=== PATIENT | female | born 1980 | race Caucasian/White ===

== ENCOUNTER 2019-08-30 13:45 | Outpatient (CLI) | payer MEDICARE, MEDICAID, SELFPAY ==
[2019-08-30 14:41] LABS: Basophils % 0.6 %; Eosinophils # 0.2 10^3/uL (0.0-0.8); Eosinophils % 2.2 %; Hemoglobin 14.8 g/dL (11.5-15.3); Lymphocytes # 2.1 10^3/uL (0.8-4.8); Lymphocytes % 30.1 %; Mean Corpuscular HGB Conc 32.2 g/dL (30.0-36.0); Mean Corpuscular Hemoglobin 30.3 pg (28.0-34.0); Mean Corpuscular Volume 94.3 fL (81-99); Mean Platelet Volume 9.3 fL (7.4-10.4); Monocytes # 0.8 10^3/uL (0.2-0.9); Monocytes % 11.3 %; Neutrophils # 3.8 10^3/uL (1.8-7.7); Neutrophils % 55.5 %; Nucleated Red Blood Cells % 0 %; Platelet Count 423 10^3/cmm (130-400); Red Blood Count 4.88 10^6/uL (4.1-5.3); Red Cell Distribution Width 12.9 % (12.1-15.1); White Blood Count 6.8 10^3/uL (4.0-10.0)
== END 2019-08-30 13:46 | disposition home or self-care (01) ==
LOC: ONCMED 13:47
PROVIDERS: Family Provider Nurse Practitioner Family; PCP Family Medicine; Visit Provider Internal Medicine Hematology & Oncology
DX: D75.1 Secondary polycythemia (principal)
CPT/HCPCS: 36415; 85025

== ENCOUNTER 2019-09-13 14:06 | Outpatient (CLI) | payer MEDICARE, MEDICAID, SELFPAY ==
--- NOTE | 2019-09-13 14:09 | MM_ITS ---
WS: [id number] BILATERAL DIGITAL SCREENING MAMMOGRAPHY WITH CAD CLINICAL INFORMATION: SCREENING HISTORY: Screening mammogram. No current complaints. COMPARISON: June 01, 2016 TECHNIQUE: Bilateral CC and MLO views. FINDINGS: Scattered fibroglandular densities bilaterally. Intramammary lymph nodes right breast. Asymmetric hardik ast tissue upper right breast with small nodule measuring 9 mm is new from 2016. Recommend spot compr ession views and ultrasound in further evaluation. Left breast is unchanged. MM/[id number] IMPRESSION: BI-RADS: 0-Incomplete: Need additional imaging evaluation FOLLOW UP: Need Additional Imaging
== END 2019-09-13 14:07 | disposition home or self-care (01) ==
LOC: RADSHAW 14:06
PROVIDERS: Family Provider Nurse Practitioner Family; PCP Family Medicine; Visit Provider Family Medicine
DX: Z12.31 Encounter for screening mammogram for malignant neoplasm of breast (principal)
CPT/HCPCS: 77067

== ENCOUNTER 2019-10-09 12:05 | Outpatient (CLI) | payer MEDICARE, MEDICAID, SELFPAY ==
--- NOTE | 2019-10-09 12:14 | US_ITS ---
WS: [id number] RIGHT DIGITAL MAMMOGRAPHY WITH CAD CLINICAL INFORMATION: RT BREAST LUM TECHNIQUE: 4 views of the right breast were obtained. FINDINGS: Scattered fibroglandular densities of the right breast. Again seen is asymmetric breast tissue upper outer right breast with a small 9 mm nodule. Dense breast tissue partially compresses out on the spot compression views. Ultrasound is pending. ULTRASOUND BREAST RIGHT TECHNIQUE: Ultrasound right breast focused area of concern. CLINICAL INFORMATION: RT BREAST LUMP COMPARISON: None. FINDINGS: Ultrasound right breast 11:00, 5 cm from the nipple. Well-circumscribed ovoid lesion representing a l ymph node with central fatty hilum. Lymph node node measures 1.1 x 1.1 x 0.6 cm. Underlying breast pa renchyma appears somewhat heterogeneous and dense. Mammographic findings may be due to resolving maeve ifrah or inflammation. This is probably benign. Recommend 3 month follow-up right diagnostic mammogram and ultrasound. No other suspicious abnormalities. No focal lesions to target for biopsy. US/US breast RT limited* [id number] IMPRESSION: BI-RADS: 3-Probably Benign FOLLOW UP: 3 Month Follow-up
== END 2019-10-09 12:06 | disposition home or self-care (01) ==
LOC: RADSHAW 12:11
PROVIDERS: Family Provider Nurse Practitioner Family; PCP Family Medicine; Visit Provider Family Medicine
DX: N63.11 Unspecified lump in the right breast, upper outer quadrant (principal)
CPT/HCPCS: 76642; 77065

== ENCOUNTER → 2019-12-07 08:08 | Outpatient (BNVA) | payer MEDICARE, MEDICAID, SELFPAY | PROVIDERS: Family Provider Nurse Practitioner Family; PCP Family Medicine; Visit Provider Nurse Practitioner Psychiatric/Mental Health | DX: F33.42 Major depressive disorder, recurrent, in full remission (principal); F70 Mild intellectual disabilities; F17.210 Nicotine dependence, cigarettes, uncomplicated | CPT/HCPCS: 99213 ==

== ENCOUNTER 2020-03-07 08:00 | Outpatient (CLI) | payer MEDICARE, MEDICAID, SELFPAY | END 2020-03-07 09:00 | disposition home or self-care (01) | LOC: RADSHAW 04-01 15:18 | PROVIDERS: PCP Family Medicine; Visit Provider Surgery | DX: F33.42 Major depressive disorder, recurrent, in full remission (principal); F70 Mild intellectual disabilities; F17.210 Nicotine dependence, cigarettes, uncomplicated | CPT/HCPCS: 99213 ==

== ENCOUNTER → 2020-06-06 07:37 | Outpatient (BNVA) | payer MEDICARE, MEDICAID, SELFPAY | PROVIDERS: PCP Family Medicine; Visit Provider Nurse Practitioner Psychiatric/Mental Health | DX: F33.42 Major depressive disorder, recurrent, in full remission (principal); F70 Mild intellectual disabilities; F17.210 Nicotine dependence, cigarettes, uncomplicated; F43.12 Post-traumatic stress disorder, chronic | CPT/HCPCS: 99213 ==

== ENCOUNTER → 2020-08-22 10:27 | Outpatient (BNVA) | payer MEDICARE, MEDICAID, SELFPAY | PROVIDERS: PCP Family Medicine; Visit Provider Nurse Practitioner Family | DX: E55.9 Vitamin D deficiency, unspecified (principal); E03.9 Hypothyroidism, unspecified; E78.2 Mixed hyperlipidemia; Z79.899 Other long term (current) drug therapy | CPT/HCPCS: 80053; 80061; 81003; 82306; 83036; 84439; 84443; 84481; 85025 ==

== ENCOUNTER → 2020-09-05 07:45 | Outpatient (BNVA) | payer MEDICARE, MEDICAID, SELFPAY | PROVIDERS: PCP Family Medicine; Visit Provider Nurse Practitioner Psychiatric/Mental Health | DX: F33.42 Major depressive disorder, recurrent, in full remission (principal); F70 Mild intellectual disabilities; F17.210 Nicotine dependence, cigarettes, uncomplicated | CPT/HCPCS: 99214 ==

== ENCOUNTER 2020-10-10 10:56 | Outpatient (CLI) | payer MEDICARE, MEDICAID, SELFPAY ==
--- NOTE | 2020-10-10 11:01 | MM_ITS ---
WS: [id number] BILATERAL DIGITAL SCREENING MAMMOGRAPHY WITH CAD CLINICAL INFORMATION: SCREENING HISTORY: Screening mammogram. No current complaints. COMPARISON: None. TECHNIQUE: Bilateral CC and MLO views. FINDINGS: Scattered fibroglandular densities bilaterally. Stable asymmetric breast tissue upper outer right hardik ast. A few intramammary lymph nodes. Stable fatty lymph nodes right axilla. No suspicious focal mass, asymmetry, calcifications, or architectural distortion. No evidence of malignancy. MM/[id number] IMPRESSION: BI-RADS: 2-Benign FOLLOW UP: 1 Year Follow-up Recommend return to annual screening mammography.
== END 2020-10-10 10:57 | disposition home or self-care (01) ==
LOC: RADSHAW 10:58
PROVIDERS: PCP Nurse Practitioner Family; Visit Provider Nurse Practitioner Family
DX: Z12.31 Encounter for screening mammogram for malignant neoplasm of breast (principal)
CPT/HCPCS: 77067

== ENCOUNTER → 2020-10-24 12:17 | Outpatient (BNVA) | payer MEDICARE, MEDICAID, SELFPAY | PROVIDERS: PCP Nurse Practitioner Family; Visit Provider Nurse Practitioner Family | DX: E55.9 Vitamin D deficiency, unspecified (principal); E78.2 Mixed hyperlipidemia; E03.9 Hypothyroidism, unspecified; Z79.899 Other long term (current) drug therapy | CPT/HCPCS: 80053; 80061; 81003; 82306; 83036; 84439; 84443; 84481; 85025 ==

== ENCOUNTER → 2020-11-04 11:49 | Outpatient (BNVA) | payer MEDICARE, MEDICAID, SELFPAY | PROVIDERS: PCP Nurse Practitioner Family; Visit Provider Nurse Practitioner Family | DX: N39.0 Urinary tract infection, site not specified (principal) | CPT/HCPCS: 81003 ==

== ENCOUNTER → 2020-12-12 08:07 | Outpatient (BNVA) | payer MEDICARE, MEDICAID, SELFPAY | PROVIDERS: PCP Nurse Practitioner Family; Visit Provider Nurse Practitioner Psychiatric/Mental Health | DX: F33.42 Major depressive disorder, recurrent, in full remission (principal); F70 Mild intellectual disabilities; F17.210 Nicotine dependence, cigarettes, uncomplicated | CPT/HCPCS: 99214 ==

== ENCOUNTER 2020-12-24 13:29 | Emergency (ER) | payer MEDICARE, MEDICAID, SELFPAY ==
[2020-12-24 13:45] VITALS: BP 107/83; PULSE 95; RESP 16; TEMP 37.3; O2SAT 95; BMI 39.8
--- NOTE | 2020-12-24 14:05 | USCV_ITS ---
FlashBrenda barnard Age: 40 Gender: F : 1980 Exam Date: 12/24/2020 14:25 Ordering Phys: Breanna Mercado Technologist: MARY [place] [facility] [place]: Swelling, pain HISTORY: Left lower extremity pain and swelling. PROCEDURES: Comparison: none available. Venous duplex imaging was performed in only the left lower extremity. The following venous structures were evaluated: common femoral vein, profunda vein, proximal portion of the greater saphenous vein, superficial femoral vein, and the popliteal vein. In addition, the posterior tibial and peroneal trunk were evaluated. Serial compression, augmentation maneuvers, and spectral Doppler flow evaluation were performed. FINDINGS: Normal 2-D Doppler and augmentation and compressibility throughout the lower extremity venous structures. Additional imaging through the proximal calf veins also reveals no thrombus. Limited evaluation of the greater saphenous vein is patent with no thrombus.. There is subcutaneous left lower extremity edema noted. CONCLUSIONS No DVT left lower extremity. Dr. Sara Vasquez DO (Electronically Signed) Final Date: 24 Dec 2020 14:41 S
--- NOTE | 2020-12-24 14:07 | W.ED.EXTPRO ---
HPI - Extremity Problem General: Chief complaint: Extremity Problem,Nontraumatic Stated complaint: L LEG PAIN, RED, SWOLLEN Time Seen by Provider: 12/24/20 13:35 Source: patient Mode of arrival: ambulatory History of Present Illness: HPI Narrative: left leg pain and swelling, redness Complaint: extremity pain and extremity swelling Location: left and lower extremity Severity scale (1-10): 6 Quality: burning and aching Radiation: none Exacerbating factors: weight bearing and walking Associated symptoms: Reports fever(s) Review of Systems General: Reports: 10 or more systems reviewed and unremarkable except in HPI and below Const: Reports: fever(s); Denies: chills Musc: Reports: extremity pain (left leg) and extremity swelling (left leg) PFSH ED PFSH: Medical History Asthma Encounter for medication management H/O methicillin resistant Staphylococcus aureus Hypothyroid Idiopathic mild intellectual disability Insomnia Major depressive disorder, recurrent, in full remission with anxious distress Mixed hyperlipidemia Nicotine dependence, cigarettes, uncomplicated Osteoarthritis of right knee Pain and swelling of left lower leg Vitamin D deficiency Physical Exam Const: COMMON NORMALS: no acute distress, patient oriented x3, no limitations and alert GENERAL APPEARANCE: cooperative and comfortable ORIENTATION/CONSCIOUSNESS: Yes awake, Yes oriented to person, Yes oriented to place and Yes oriented to time HENMT: COMMON NORMALS: normocephalic, atraumatic, external ears normal, EAC's normal, TM's normal bilaterally and Normal external nose present HEAD & SCALP: normal to inspection, normocephalic and atraumatic FACE & SINUS: normal facial exam, sinuses nontender and face symmetric NOSE: Normal external nose present, Normal nares present and No nasal discharge present EXTERNAL EAR: Yes external ears normal EXTERNAL AUDITORY CANAL: EAC's normal TYMPANIC MEMBRANE: TM's normal bilaterally MOUTH: Normal oral and palatal mucosa present, lip normal and tongue normal THROAT: posterior oropharynx normal, tonsils normal and uvula midline Eye: COMMON NORMALS: Equal, round and reactive pupils present, EOMs intact bilaterally and conjunctivae normal GENERAL EYE: appearance normal, both eyes and all related structures and normal light reflex EYELID: eyelids normal CONJUNCTIVA: Yes conjunctivae normal PUPIL: Yes Equal, round and reactive pupils present EOM: Yes EOM abnormal DIRECT OPHTHALMOSCOPY: Yes normal light reflex Neck/C-Spine: COMMON NORMALS: full ROM, no lymphadenopathy, supple, no meningeal signs, no JVD and Thyroid normal GENERAL: Yes normal visual inspection THYROID: Thyroid normal CERVICAL SPINE: Yes cervical ROM normal and Yes normal cervical lordosis Lymph: LYMPHATIC: no lymphadenopathy noted Chest: COMMONS NORMALS: normal inspection of the chest and normal palpation of entire chest wall Resp: COMMON NORMALS: normal respiratory effort, No retractions and clear to auscultation bilaterally AUSCULTATION: clear to auscultation bilaterally Cardio: COMMON NORMALS: no JVD, regular rate, regular rhythm, S1 normal heart sound present, S2 normal heart sound present, No gallops present (Cardio), No clicks present (Cardio), No murmurs present (Cardio), No rub (Cardio) and Peripheral pulses 2+ throughout RATE: regular rate RHYTHM: regular rhythm HEART SOUNDS: S1 normal heart sound present and S2 normal heart sound present PERIPHERAL PULSES: Peripheral pulses 2+ throughout GI: COMMON NORMALS: Normal to inspection, nondistended, normoactive bowel sounds present, Soft to palpation, non-tender and no masses PALPATION: Yes Soft to palpation : COMMON NORMALS: Yes no CVA tenderness and Yes normal external appearance BLADDER/KIDNEY EXAM: Yes no CVA tenderness Back/Pelvis: COMMON NORMALS: no CVA tenderness, thoracic and lumbar spine normal to inspection, no thoracic nor lumbar tenderness and thoraco-lumbar ROM normal Extremity: COMMON NORMALS: normal to inspection, full ROM, capillary refill normal, no joint enlargement, no clubbing, cyanosis or edema, no calf tenderness and no pedal edema GENERAL: Yes normal exam except as noted LEFT LOWER EXTREMITY: Yes lower leg (redness, swelling, positive Turpin's sign) Left lower leg: Yes palpation (warm to touch) and Yes neurovascular exam (intact ) Neuro: COMMON NORMALS: patient oriented x3, moves all extremities, no focal motor deficits, no sensory deficits noted and gait normal SENSORIUM/ORIENTATION: Yes alert, Yes oriented to person, Yes oriented to place and Yes oriented to time MENINGEAL SIGNS: Yes no meningeal signs Psych: COMMON NORMALS: mental status grossly normal, Normal thought process present, cooperative, normal affect, speech normal and activity/motor behavior normal SPEECH: Yes normal speech THOUGHT PROCESS: Normal thought process present Skin: COMMON NORMALS: no rashes or lesions noted, no wounds and turgor normal GENERAL SKIN EXAM: no rashes or lesions noted and turgor normal Course ED course: Pt presents to ER with complaints of left leg pain, swelling, redness for a few days. The leg is visibly red, swollen, tender, and warm to touch. Labs and US pending. Pt has low grade fever of 99.1. Toradol ordered. Reevaluation(s): Reevaluation #1: US negative for DVT. WBC slightly elevated. Will give initial IV clinda and outpt oral antibx with close follow up with PCP tomorrow to ensure improving. Return for any worsening in symptoms or if not better in 24 to 48 hours. Time: 15:14 Vital Signs: Vital signs: Vital Signs Temperature 99.1 F 12/24/20 13:45 Pulse Rate 93 12/24/20 14:28 Respiratory Rate 16 12/24/20 14:28 Blood Pressure 107/83 12/24/20 14:28 Pulse Oximetry 94 12/24/20 14:28 MDM - Extremity (Nontraumatic) Lab Data: Labs: Lab Results 12/24/20 12/24/20 12/24/20 Range/Units 13:50 13:50 13:50 WBC 13.3 H (4.0-10.0) 10^3/ uL RBC 5.18 (4.1-5.3) 10^6/u L Hgb 15.5 H (11.5-15.3) g/dL Hct 47.8 H (37.0-47.0) % MCV 92.3 (81-99) fL MCH 29.9 (28.0-34.0) pg MCHC 32.4 (30.0-36.0) g/dL RDW 14.0 (12.1-15.1) % Plt Count 281 (130-400) 10^3/c mm MPV 10.2 (7.4-10.4) fL Neut % (Auto) 88.3 % Lymph % (Auto) 6.9 % [place] % (Auto) 4.0 % Eos % (Auto) 0.1 % Baso % (Auto) 0.2 % Neut # (Auto) 11.74 H (1.8-7.7) 10^3/u L Lymph # (Auto) 0.9 (0.8-4.8) 10^3/u L [place] # (Auto) 0.5 (0.2-0.9) 10^3/u L Eos # (Auto) 0.0 (0.0-0.8) 10^3/u L Baso # (Auto) 0.0 (0.0-0.1) 10^3/u L Nucleated RBC % (a uto) 0 % Nucleated RBCs # 0.0 /100WBC PT 15.10 H (12.1-14.9) SECO NDS INR 1.16 (0.8-1.2) APTT 32.4 (23.9-36.7) SECO NDS Sodium 134 L (136-145) mmol/L Potassium 4.4 (3.5-5.1) mmol/L Chloride 98 (98-107) mmol/L Carbon Dioxide 25 (22-29) mmol/L Anion Gap 15.4 (5-19) BUN 8 (6-20) mg/dL Creatinine 0.9 (0.5-0.9) mg/dL GFR Calculation 68.7 L (90-130) mL/min Glucose 82 (65-115) mg/dL Calculated Osmolal ity 275 L (285-295) mOsm/k g Calcium 8.8 (8.5-10.5) mg/dL Total Bilirubin 0.3 (0.15-1.2) mg/dL AST 29 (0-32) U/L ALT 29 (0-33) U/L Alkaline Phosphata se 72 (35-105) IU/L Total Protein 7.0 (6.6-8.7) g/dL Albumin 4.1 (3.5-5.2) g/dL Globulin 2.9 (1.3-4.6) g/dL Imaging Data^: US: Radiologist's impression: [address] [id number] ReportSigned Patient: Brenda Correia #: [id number]: 1980Acct#:[id number]/Sex: 40 / FADM Date: 12/24/20Loc: ERRoom/Bed:Attending Dr: Ordering Provider/Ordering MD: Breanna Mercado NP Date of Service: 12/24/20 Procedure(s): [id number] Accession Number(s): [id number] Report Number: [id number] Brenda Correia Age: 40 Gender: F : 1980 Exam Date: 12/24/2020 14:25 Ordering Phys: Breanna Mercado Technologist: MARY [place]am Location[place] [facility] [place] Indication: Swelling, pain HISTORY: Left lower extremity pain and swelling. PROCEDURES: Comparison: none available. Venous duplex imaging was performed in only the left lower extremity. The following venous structures were evaluated: common femoral vein, profunda vein, proximal portion of the greater saphenous vein, superficial femoral vein, and the popliteal vein. In addition, the posterior tibial and peroneal trunk were evaluated. Serial compression, augmentation maneuvers, and spectral Doppler flow evaluation were performed. FINDINGS: Normal 2-D Doppler and augmentation and compressibility throughout the lower extremity venous structures. Additional imaging through the proximal calf veins also reveals no thrombus. Limited evaluation of the greater saphenous vein is patent with no thrombus.. There is subcutaneous left lower extremity edema noted. CONCLUSIONS No DVT left lower extremity. Dr. Sara Vasquez DO (Electronically Signed) Final Date: 24 Dec 2020 14:41 S Discharge Plan Discharge Prescriptions: No Action levothyroxine 50 mcg tablet PO RF: 0 albuterol sulfate 90 mcg/actuation HFA aerosol inhaler 2 puff inhalation Q6H PRN (Reason: shortness of breath or wheezing) RF: 0 bupropion HCl [Wellbutrin SR] 150 mg tablet sustained-release 12 hr 150 mg PO BID Qty: 60 RF: 6 lorazepam 0.5 mg tablet 0.5 mg PO TID Qty: 75 RF: 3 trazodone 50 mg tablet 50 mg PO .QHS PRN (Reason: sleep) Qty: 30 RF: 6 albuterol sulfate 2.5 mg /3 mL (0.083 %) solution for nebulization 2.5 mg INHALATION TID RF: 0 atorvastatin 20 mg tablet 20 mg PO QDAY RF: 0 cetirizine [Zyrtec] 10 mg tablet 10 mg PO QDAY RF: 0 melatonin 5 mg capsule 5 mg PO .QHS Qty: 30 RF: 6 ergocalciferol (vitamin D2) 1,250 mcg (50,000 unit) capsule 1,250 mcg PO .weekly Qty: 4 RF: 5 omega-3 acid ethyl esters 1 gram capsule See Rx Instructions .ROUTE .COMPLEX Qty: 120 RF: 5 docusate sodium [Colace] 100 mg capsule 100 mg PO BID Qty: 60 RF: 5 meloxicam 15 mg tablet 15 mg PO QDAY Qty: 90 RF: 1 fluticasone propionate 50 mcg/actuation spray,suspension See Rx Instructions .ROUTE .COMPLEX Qty: 16 RF: 2 Coding Level of Care Code ED [employer] Fwd Exam Comprehensive
[2020-12-24 14:23] LABS: Basophils % 0.2 %; Eosinophils % 0.1 %; Hematocrit 47.8 % (37.0-47.0); Hemoglobin 15.5 g/dL (11.5-15.3); Lymphocytes # 0.9 10^3/uL (0.8-4.8); Lymphocytes % 6.9 %; Mean Corpuscular HGB Conc 32.4 g/dL (30.0-36.0); Mean Corpuscular Hemoglobin 29.9 pg (28.0-34.0); Mean Corpuscular Volume 92.3 fL (81-99); Mean Platelet Volume 10.2 fL (7.4-10.4); Monocytes # 0.5 10^3/uL (0.2-0.9); Neutrophils # 11.74 10^3/uL (1.8-7.7); Neutrophils % 88.3 %; Nucleated Red Blood Cells % 0 %; Platelet Count 281 10^3/cmm (130-400); Red Blood Count 5.18 10^6/uL (4.1-5.3); White Blood Count 13.3 10^3/uL (4.0-10.0)
[2020-12-24 14:27] LABS: INR 1.16 (0.8-1.2)
[2020-12-24] MEDS: ketorolac 30 mg/mL INJ IVP (14:27)
[2020-12-24 14:28] VITALS: BP 107/83; PULSE 93; RESP 16; O2SAT 94
[2020-12-24 14:28] LABS: Partial Thromboplastin Time 32.4 SECONDS (23.9-36.7)
--- NOTE | 2020-12-24 14:31 | PC.NURSE ---
US done at bedside
[2020-12-24 14:34] LABS: Alanine Aminotransferase 29 U/L (0-33); Albumin Level 4.1 g/dL (3.5-5.2); Alkaline Phosphatase 72 IU/L (35-105); Anion Gap 15.4 (5-19); Aspartate Amino Transferase 29 U/L (0-32); Blood Urea Nitrogen 8 mg/dL (6-20); Calcium 8.8 mg/dL (8.5-10.5); Carbon Dioxide 25 mmol/L (22-29); Chloride 98 mmol/L (98-107); Creatinine Clr Calc Pharmacy 82.6742; Globulin 2.9 g/dL (1.3-4.6); Glomerular Filtration Rate 68.7 mL/min (90-130); Glucose 82 mg/dL (65-115); Osmolality Calculated 275 mOsm/kg (285-295); Potassium 4.4 mmol/L (3.5-5.1); Sodium 134 mmol/L (136-145); Total Bilirubin 0.3 mg/dL (0.15-1.2)
[2020-12-24 15:15] LABS: Lactate (Lactic Acid level) 1.4 mmol/L (0.5-2.2)
[2020-12-24] MEDS: clindamycin 600 MG/50 ML PREMIX 100 MG IV (16:00)
[2020-12-24 16:04] VITALS: BP 103/69; PULSE 84; RESP 16; O2SAT 97
== END 2020-12-24 16:12 | disposition home or self-care (01) ==
PROVIDERS: Emergency Provider Nurse Practitioner Family; PCP Nurse Practitioner Family
DX: M79.605 Pain in left leg (principal); E78.2 Mixed hyperlipidemia
CPT/HCPCS: 36415; 80053; 83605; 85025; 85610; 85730; 93971; 96365; 96375; 99283; J1885; J3490

== ENCOUNTER 2020-12-28 10:59 | Inpatient (IN) | payer MEDICARE, MEDICAID, SELFPAY ==
[2020-12-28] VITALS (7 sets, daily range): BP systolic 91–144; BP diastolic 59–89; PULSE 76–89; RESP 14–18; TEMP 36.8–37.2; O2SAT 96–98; BMI 35.5
--- NOTE | 2020-12-28 11:16 | W.ED.EXTPRO ---
HPI - Extremity Problem General: Chief complaint: Extremity Problem,Nontraumatic Stated complaint: LEFT LEG PAIN WITH EDEMA Time Seen by Provider: 12/28/20 11:13 History of Present Illness: HPI Narrative: 40-year-old female presents with left leg erythema and edema. Patient was seen here on 12/24/2020. At that time she was diagnosed with cellulitis and started on clindamycin. She had a negative venous Doppler. Patient reports that she continues have increased swelling and erythema despite the clindamycin. She has some increasing pain. She reports no fevers or chills. Associated symptoms: Deny chest pain or fever(s) Review of Systems Const: Denies: fever(s) or chills ENMT: Denies: throat pain Card: Denies: chest pain or palpitations Resp: Denies: dyspnea or productive cough GI: Denies: abdominal pain, nausea or vomiting : Denies: difficulty voiding Musc: Reports: extremity pain and extremity swelling (Left leg) Skin/Breast: Reports: erythema (Left leg) Neuro: Denies: headache(s) PFSH ED PFSH: Medical History Asthma Encounter for medication management H/O methicillin resistant Staphylococcus aureus Hypothyroid Idiopathic mild intellectual disability Insomnia Major depressive disorder, recurrent, in full remission with anxious distress Mixed hyperlipidemia Nicotine dependence, cigarettes, uncomplicated Osteoarthritis of right knee Pain and swelling of left lower leg Vitamin D deficiency Physical Exam Const: COMMON NORMALS: no acute distress, patient oriented x3 and alert GENERAL APPEARANCE: cooperative and well kempt Resp: COMMON NORMALS: normal respiratory effort, No retractions and clear to auscultation bilaterally AUSCULTATION: clear to auscultation bilaterally Cardio: COMMON NORMALS: regular rate and regular rhythm RATE: regular rate RHYTHM: regular rhythm GI: COMMON NORMALS: Normal to inspection, nondistended, normoactive bowel sounds present and Soft to palpation PALPATION: Yes Soft to palpation Extremity: NARRATIVE EXTREMITY EXAM: Significant 3+ swelling with erythema of left lower leg Neuro: COMMON NORMALS: patient oriented x3 and CN's II-XII intact bilaterally SENSORIUM/ORIENTATION: Yes alert Psych: COMMON NORMALS: cooperative and normal affect APPEARANCE: Yes well kempt Skin: NARRATIVE SKIN EXAM: Warmth and erythema to left lower extremity Course Vital Signs: Vital signs: Vital Signs Temperature 98.3 F 05/16/21 11:10 Pulse Rate 86 12/28/20 11:10 Respiratory Rate 18 12/28/20 11:10 Blood Pressure 117/82 12/28/20 11:10 Pulse Oximetry 96 12/28/20 11:10 MDM - Extremity (Nontraumatic) MDM Narrative: Medical decision making narrative: Patient with failed outpatient therapy on her left lower leg cellulitis. We will admit her for inpatient IV antibiotics. Discussed with Dr. Ku. Patient accepted in stable condition Lab Data: Attestation: I reviewed the patient's lab results. Labs: Lab Results 12/28/20 12/28/20 12/28/20 Range/Units 11:35 11:35 11:35 WBC 13.5 H (4.0-10.0) 10^3/ uL RBC 4.38 (4.1-5.3) 10^6/u L Hgb 13.2 (11.5-15.3) g/dL Hct 39.7 (37.0-47.0) % MCV 90.6 (81-99) fL MCH 30.1 (28.0-34.0) pg MCHC 33.2 (30.0-36.0) g/dL RDW 13.7 (12.1-15.1) % Plt Count 407 H (130-400) 10^3/c mm MPV 9.4 (7.4-10.4) fL Neut % (Auto) 77.8 % Lymph % (Auto) 12.0 % [place] % (Auto) 7.9 % Eos % (Auto) 1.0 % Baso % (Auto) 0.4 % Neut # (Auto) 10.52 H (1.8-7.7) 10^3/u L Lymph # (Auto) 1.6 (0.8-4.8) 10^3/u L [place] # (Auto) 1.1 H (0.2-0.9) 10^3/u L Eos # (Auto) 0.1 (0.0-0.8) 10^3/u L Baso # (Auto) 0.1 (0.0-0.1) 10^3/u L Nucleated RBC % (a uto) 0 % Nucleated RBCs # 0.0 /100WBC Sodium 137 (136-145) mmol/L Potassium 4.3 (3.5-5.1) mmol/L Chloride 101 (98-107) mmol/L Carbon Dioxide 26 (22-29) mmol/L Anion Gap 14.3 (5-19) BUN 8 (6-20) mg/dL Creatinine 0.7 (0.5-0.9) mg/dL GFR Calculation 91.8 (90-130) mL/min Glucose 99 (65-115) mg/dL Calculated Osmolal ity 282 L (285-295) mOsm/k g Lactate 0.9 (0.5-2.2) mmol/L Calcium 8.6 (8.5-10.5) mg/dL Total Bilirubin 0.3 (0.15-1.2) mg/dL AST 15 (0-32) U/L ALT 15 (0-33) U/L Alkaline Phosphata se 80 (35-105) IU/L Total Protein 6.8 (6.6-8.7) g/dL Albumin 3.3 L (3.5-5.2) g/dL Globulin 3.5 (1.3-4.6) g/dL Discharge Plan Discharge Patient Disposition: Admitted As Inpatient Clinical Impression: Cellulitis of left lower extremity Condition: Stable Coding Level of Care Code ED [employer] Fwd Exam Detailed
[2020-12-28 11:44] LABS: Basophils # 0.1 10^3/uL (0.0-0.1); Basophils % 0.4 %; Eosinophils # 0.1 10^3/uL (0.0-0.8); Hematocrit 39.7 % (37.0-47.0); Hemoglobin 13.2 g/dL (11.5-15.3); Lymphocytes # 1.6 10^3/uL (0.8-4.8); Mean Corpuscular HGB Conc 33.2 g/dL (30.0-36.0); Mean Corpuscular Hemoglobin 30.1 pg (28.0-34.0); Mean Corpuscular Volume 90.6 fL (81-99); Mean Platelet Volume 9.4 fL (7.4-10.4); Monocytes # 1.1 10^3/uL (0.2-0.9); Monocytes % 7.9 %; Neutrophils # 10.52 10^3/uL (1.8-7.7); Neutrophils % 77.8 %; Nucleated Red Blood Cells % 0 %; Platelet Count 407 10^3/cmm (130-400); Red Blood Count 4.38 10^6/uL (4.1-5.3); Red Cell Distribution Width 13.7 % (12.1-15.1); White Blood Count 13.5 10^3/uL (4.0-10.0)
[2020-12-28] MEDS: cefTRIAXone 1,000 MG in sodium chloride 0.9% (plus) 50 ML 100 MG IV ×2 (12:05→23:21)
[2020-12-28] MEDS: vancomycin 1,000 MG in sodium chloride 0.9% 250 ML 250 MG IV ×2 (12:06→23:29)
[2020-12-28] MEDS: sodium chloride 0.9% (100 ml) 100 ML 200 ML (12:09)
[2020-12-28 12:10] LABS: Alanine Aminotransferase 15 U/L (0-33); Albumin Level 3.3 g/dL (3.5-5.2); Alkaline Phosphatase 80 IU/L (35-105); Anion Gap 14.3 (5-19); Aspartate Amino Transferase 15 U/L (0-32); Blood Urea Nitrogen 8 mg/dL (6-20); Calcium 8.6 mg/dL (8.5-10.5); Carbon Dioxide 26 mmol/L (22-29); Chloride 101 mmol/L (98-107); Creatinine Clr Calc Pharmacy 103.7779; Globulin 3.5 g/dL (1.3-4.6); Glomerular Filtration Rate 91.8 mL/min (90-130); Glucose 99 mg/dL (65-115); Osmolality Calculated 282 mOsm/kg (285-295); Potassium 4.3 mmol/L (3.5-5.1); Sodium 137 mmol/L (136-145); Total Bilirubin 0.3 mg/dL (0.15-1.2); Total Protein 6.8 g/dL (6.6-8.7)
[2020-12-28 12:11] LABS: Lactate (Lactic Acid level) 0.9 mmol/L (0.5-2.2)
--- NOTE | 2020-12-28 12:41 | PC.NURSE ---
Rocephin complete, vss, pt resting quietly between care, no other immediate needs identified, will continue to monitor.
--- NOTE | 2020-12-28 17:19 | PM.HP ---
Providers/Chief Complaint Admitting Physician: Ping Ku MD Primary Care Provider: MAUREEN Cummins Chief Complaint: LEFT LEG PAIN WITH EDEMA History of Present Illness Brenda Correia is a 40 year old female who presented to the emergency room with increasing redness and swelling of her left lower extremity. Symptoms began approximately 1 week ago. No report of any injury, bug bite. She reports that her lower leg and foot started bothering her at first with swelling and redness. As this moved up the leg she started having pain. By Tuesday of last week redness had extended almost to the thigh. She was seen in the emergency room on December 24. Venous duplex did not show any evidence of DVT. She received some IV clindamycin in the emergency room and was subsequently discharged on oral clindamycin. Since that time she has had increased edema and more intense erythema. She reports that the redness had previously been almost up into the left groin. She has had some fevers, general malaise and pain. Pain is bad but not intolerable. She has some itching in the leg and does admit to scratching it sometimes. There are some areas with some purulent looking vesicles which she states have been there for couple of days. In the emergency room given lack of improvement she received vancomycin and Rocephin and is being admitted for ongoing management after failure of outpatient care. She has never had anything like this before. She is not a diabetic. Review of records does indicate that she has had previous MRSA infection necessitating incision and drainage from her wound on her back. Review of Systems Const: Reports: fever(s), body aches, change in appetite and malaise; Denies: chills Eyes: Denies: change in vision ENMT: Denies: throat pain or nasal congestion Card: Denies: chest pain, palpitations or edema Resp: Reports: dyspnea (Sometimes); Denies: productive cough or non-productive cough GI: Reports: nausea; Denies: abdominal pain, vomiting or diarrhea : Denies: difficulty voiding or hematuria Musc: Reports: extremity pain (Left lower extremity from foot to thigh) Skin/Breast: Reports: pruritus, erythema and skin tenderness Neuro: Reports: difficulty walking (Due to pain in the leg); Denies: numbness in extremities Psych: Reports: other (Does not make her own medical decisions, staff at her facility do) Endo: Reports: other (Currently on her cycle) Ojsé/Lymph: Denies: easy bruising or easy bleeding Medications/Allergies Home Medications Medication Instructions Recorded Confirmed Last Taken Type albuterol sulfate 2.5 mg INHALATION TID ml 09/10/19 12/28/20 Unknown History atorvastatin 20 mg tablet 20 mg PO DAILY@209909/10/19 12/28/20 12/27/20 History cetirizine 10 mg tablet 10 mg PO DAILY@209909/10/19 12/28/20 12/27/20 History albuterol sulfate 90 mcg/actuation 2 puff INHALATION Q6H PRN g 08/22/20 12/28/20 Unknown History aerosol inhaler levothyroxine 50 mcg tablet 50 mcg PO DAILY 08/22/20 12/28/20 12/28/20 History ergocalciferol (vitamin D2) 1,250 1,250 mcg PO .weekly #4 cap 08/27/20 12/28/20 12/25/20 Rx mcg (50,000 unit) capsule clindamycin HCl 300 mg PO TID 10 Days #30 cap 12/24/20 12/28/20 12/28/20 Rx Colace 100 mg PO BID@12/28/20 12/28/20 12/28/20 History Wellbutrin SR 150 mg PO BID@12/28/20 12/28/20 12/28/20 History fluticasone propionate 2 spray INTRANASAL DAILY 12/28/20 12/28/20 12/28/20 History lorazepam 0.25 mg PO TID 12/28/20 12/28/20 12/28/20 History melatonin 5 mg PO BEDTIME 12/28/20 12/28/20 12/27/20 History meloxicam 15 mg PO DAILY@209912/28/20 12/28/20 12/27/20 History omega-3 acid ethyl esters 2 cap PO BID@12/28/20 12/28/20 12/28/20 History trazodone 50 mg PO BEDTIME PRN 12/28/20 12/28/20 Unknown History Allergies Allergy/AdvReac Type Severity Reaction Status Date / Time No Known Allergies Allergy Verified 12/24/20 11:35 Additional Medication Information I personally reviewed home medication list and medications received day of admission thus far. PFS Acute PFSH: Medical History (Updated 12/28/20 @ 18:14 by Ping Ku MD) Asthma H/O methicillin resistant Staphylococcus aureus Hypothyroid Idiopathic mild intellectual disability Insomnia Major depressive disorder, recurrent, in full remission with anxious distress Mixed hyperlipidemia Nicotine dependence, cigarettes, uncomplicated Not smoking on 12/28/2020 Osteoarthritis of right knee Vitamin D deficiency Surgical History (Updated 12/28/20 @ 17:22 by Ping Ku MD) History of incision and drainage (~2010) with debridement for abscess in upper back, mrsa Social History (Updated 12/28/20 @ 18:01 by Ping Ku MD) Smoking and tobacco status: former smoker Alcohol intake: former Former alcohol use details: quit when moved to [place], never heavy drinker Substance/Drug Use: never Housing: Other Details: [place] Female Reproductive History: Date of last menstrual period: 12/28/20 Supplemental PFSH Information: Family history unknown Vitals/I&O/Wt Last Vital Signs Temp 98.6 F 12/28/20 15:36 Pulse 76 12/28/20 15:36 Resp 18 12/28/20 15:36 BP 96/65 12/28/20 15:36 Pulse Ox 96 12/28/20 15:36 12/28/20 12/28/20 12/28/20 06:59 14:59 22:59 Intake Total 400 / 400 Balance 400 / 400 Weight last 48 hrs Weight 85.275 kg Physical Exam Narrative: EXAM NARRATIVE: Constitutional: Awake and alert, cooperative, looks mildly uncomfortable HEENT: Pupils are equally reactive, extraocular movements are intact, nasopharynx is clear, oropharynx with moist mucous membranes, good dentition Neck: Supple Respiratory: Clear to auscultation bilaterally without any rales rhonchi or wheezes noted Cardiovascular: Regular rate and rhythm without any murmurs gallops or rubs, 2+ pulses radially bilaterally, 2+ dorsalis pedis on the right 1+ dorsalis pedis on the left but good capillary refill on the left Abdomen: Soft, nontender, positive bowel sounds : Normal external, palpable and mildly tender lymphadenopathy in the left groin Extremities/Skin: Edema to the left lower extremity from toes up to upper thigh. This is associated with intensely red erythema well demarcated with intermittent areas of central clearing. Above the knee on the medial side there is a patch of purulent vesicles and a grouping measuring approximately 4 cm in diameter. In the medial upper thigh there are some stretch franks that are swollen and look to be early vesicular formation each 6 to 10 mm in diameter approximately 12 of them. No hemorrhagic blisters anywhere. No crepitus noted with palpation from foot to thigh. No areas of fluctuance identified. Tender to palpation but degree of pain is consistent with findings; I would in fact expect it to hurt more. Right lower extremity with none of the same findings. Neuro: Speech is clear, face symmetric, handgrip equal, moves toes on both feet though movement is limited on the left secondary to the degree of edema Psych: Flat affect, answers all questions, pleasant Skin: OTHER: Data : 12/28/20 11:35 12/28/20 11:35 Other Labs: Laboratory Tests 12/28/20 12/28/20 12/28/20 11:35 11:35 11:35 Neut # (Auto) 10.52 H Lactate 0.9 Albumin 3.3 L Micro: Microbiology 12/28/20 11:55 Blood Culture - Preliminary Blood SPECIMEN COLLECTED 12/28/20 11:35 Blood Culture - Preliminary Blood SPECIMEN COLLECTED Other data: 12/24/2020 US LLE, venous duplex FINDINGS: Normal 2-D Doppler and augmentation and compressibility throughout the lower extremity venous structures. Additional imaging through the proximal calf veins also reveals no thrombus. Limited evaluation of the greater saphenous vein is patent with no thrombus.. There is subcutaneous left lower extremity edema noted. CONCLUSIONS No DVT left lower extremity. A&P Assessment and plan (1) Erysipelas of left lower extremity: Status: Acute (2) Tinea pedis of left foot: Status: Acute (3) Asthma: not acute, chronically on albuterol as needed, on cetirizine/flonase Status: Chronic Qualifiers: Asthma complication type: uncomplicated Asthma persistence: intermittent Asthma severity: mild Qualified Code(s): J45.20 - Mild intermittent asthma, uncomplicated (4) Mixed hyperlipidemia: chronically on statin Status: Chronic (5) Hypothyroid: chronically on levothyroxine Status: Chronic Qualifiers: Hypothyroidism type: acquired Qualified Code(s): E03.9 - Hypothyroidism, unspecified (6) Major depressive disorder, recurrent, in full remission with anxious distress: chronically on wellbutrin SR Status: Chronic (7) Idiopathic mild intellectual disability: Galina Lobo [phone] is corsets salesperson, 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 states that people at [facility] makes decisions for her Status: Chronic Additional A&P Information Inpatient admission Continue vancomycin and Rocephin Check sed rate and CRP and blood in the lab Elevate left lower extremity Lotrimin cream to feet Follow-up pending blood cultures Serial extremity exams, monitoring closely for progressive or hemorrhagic blistering, crepitus, increasing pain or other concerning clinical changes Check hemoglobin A1c, glucose currently normal Home medications have been reviewed and ordered IV fluids Lovenox for DVT prophylaxis Pain control Supportive care otherwise Anticipate disposition back to [facility] when medically stable 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 Plans are as noted. 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
[2020-12-28] MEDS: enoxaparin 40 mg/0.4 mL Syringe SUBCUT (18:24)
[2020-12-28] MEDS: acetaminophen 325 mg Tablet 650 MG PO (18:28)
[2020-12-28] MEDS: sodium chlor 0.45% +KCl 20 mEq 20 MEQ/1,000 ML BAG 75 MEQ IV (18:51)
[2020-12-28 19:16] LABS: C Reactive Protein 111.7 mg/L (0.0-4.9)
[2020-12-28 19:41] LABS: Erythrocyte Sedimentation Rate 73 mm/hr (0-15)
[2020-12-28] MEDS: atorvastatin 40 mg Tablet 20 MG PO (20:43)
[2020-12-28] MEDS: buPROPion SR (12 HR) 150 mg Tablet PO (20:44)
[2020-12-28] MEDS: cetirizine 10 mg Tablet PO (20:44)
[2020-12-28] MEDS: docusate sodium 100 mg Capsule PO (20:47)
[2020-12-28] MEDS: LORazepam 0.5 mg Tablet 0.25 MG PO (20:47)
[2020-12-28] MEDS: HYDROcodone-acetaminophen 5-325 mg Tablet 1 TAB PO (23:22)
[2020-12-28] MEDS: trazodone 50 mg Tablet PO (23:22)
[2020-12-29 04:00] VITALS: BP 113/74; PULSE 84; RESP 16; TEMP 36.9; O2SAT 97
[2020-12-29 04:43] LABS: Basophils # 0.1 10^3/uL (0.0-0.1); Basophils % 0.4 %; Eosinophils # 0.3 10^3/uL (0.0-0.8); Eosinophils % 1.8 %; Lymphocytes # 2.9 10^3/uL (0.8-4.8); Lymphocytes % 20.7 %; Mean Corpuscular HGB Conc 32.5 g/dL (30.0-36.0); Mean Corpuscular Hemoglobin 29.6 pg (28.0-34.0); Mean Corpuscular Volume 91.1 fL (81-99); Mean Platelet Volume 9.5 fL (7.4-10.4); Monocytes # 1.1 10^3/uL (0.2-0.9); Monocytes % 7.5 %; Neutrophils # 9.63 10^3/uL (1.8-7.7); Neutrophils % 68.5 %; Nucleated Red Blood Cells % 0 %; Platelet Count 467 10^3/cmm (130-400); Red Blood Count 4.39 10^6/uL (4.1-5.3); Red Cell Distribution Width 14.1 % (12.1-15.1); White Blood Count 14.1 10^3/uL (4.0-10.0)
[2020-12-29 04:55] LABS: INR 0.95 (0.8-1.2)
[2020-12-29 05:07] LABS: Anion Gap 14.3 (5-19); Blood Urea Nitrogen 7 mg/dL (6-20); Calcium 8.1 mg/dL (8.5-10.5); Carbon Dioxide 24 mmol/L (22-29); Chloride 104 mmol/L (98-107); Glomerular Filtration Rate 109.6 mL/min (90-130); Glucose 75 mg/dL (65-115); Magnesium 2.3 mg/dL (1.7-2.3); Osmolality Calculated 283 mOsm/kg (285-295); Phosphorus 3.5 mg/dL (2.5-4.5); Potassium 4.3 mmol/L (3.5-5.1); Sodium 138 mmol/L (136-145)
[2020-12-29 05:09] LABS: Estmated Average Glucose 105; Hemoglobin A1C 5.3 % (4.0-6.0)
[2020-12-29 07:35] VITALS: BP 118/78; PULSE 83; RESP 18; TEMP 36.7; O2SAT 95
[2020-12-29] MEDS: buPROPion SR (12 HR) 150 mg Tablet PO ×2 (08:50→20:31)
[2020-12-29] MEDS: pantoprazole DR 40 mg Tablet PO (08:50)
[2020-12-29] MEDS: docusate sodium 100 mg Capsule PO ×2 (08:50→20:31)
[2020-12-29] MEDS: LORazepam 0.5 mg Tablet 0.25 MG PO ×3 (08:50→20:33)
[2020-12-29] MEDS: levothyroxine 50 mcg Tablet PO (08:51)
[2020-12-29] MEDS: meloxicam 7.5 mg tablet 15 MG PO (08:51)
[2020-12-29] MEDS: sodium chlor 0.45% +KCl 20 mEq 20 MEQ/1,000 ML BAG 75 MEQ IV (10:07)
[2020-12-29] MEDS: clotrimazole 1% cream 30 gm 1 APPLIC TOPICAL ×2 (10:08→17:01)
[2020-12-29] MEDS: cefTRIAXone 1,000 MG in sodium chloride 0.9% (plus) 50 ML 100 MG IV ×2 (10:12→23:04)
--- NOTE | 2020-12-29 10:36 | PC.CHAP ---
Pastoral Care Encounter/Spiritual Assessment Type of Contact [] Declined banquet waiter/waitress visit [] Patient/Family/Request visit [] Outpatient visit [] Follow-up visit [] Physician referral [] Code/Alert [] Routine visit [] Staff referral [] Actively dying [] Patient sleeping [] Family support [] [] Out of room [] Palliative care [] [] Receiving care in room [] Pre-surgical visit [] Trauma [] Long length of stay [] ICU visit [] Other: Relational/Emotional Strength [] Patient feels connected with others/family/visitors/staff [] Distress [] Loneliness/isolation [] Abandonment Spirituality of Patient [] Person of Daisy [] Attends Mu-Ism of their Daisy [] Believes in Prayer [] Reads Bible or Nondenominational materials [] There are Spiritual issues to be addressed Machine Assistant Interventions [x] Prayer [] Active listening [] Non-anxious presence [] Spiritual/emotional support [] Crisis/trauma care [] Spiritual counseling [] Bereavement support [] Provided bereavement packet [] Provided Bible/devotional materials [] Provided toy/stuffed animal, coloring book to patient or family member [] Provided Communion [] Anointing/[place] [] Salvation [] Completed spiritual assessment [] Other: Impact on Illness or Injury [] Angry [] Fearful [] Anxious [] Often cries [] Exhaustion [] Unable to work [] Unable to attend muslim [] Unable to walk/stand [] Unable to read [] Unable to drive [] Unable to eat/drink [] Unable to sleep [] Unable to be with family [] Patient intubated [] Other: Summary Time spent with patient 10min
[2020-12-29 11:05] VITALS: BP 115/79; PULSE 76; RESP 18; TEMP 36.7; O2SAT 98
[2020-12-29] MEDS: vancomycin 1,000 MG in sodium chloride 0.9% 250 ML 250 MG IV ×2 (11:45→23:38)
--- NOTE | 2020-12-29 12:07 | P.PN_ITS ---
Subjective Subjective: Interval history: Patient was seen this morning, she tells me that her left lower extremity pain is improving, area of redness is improving, no fevers overnight, Vitals/I&O/Wt Last Vital Signs Temp 98.0 F 12/29/20 11:05 Pulse 76 12/29/20 11:05 Resp 18 12/29/20 11:05 BP 115/79 12/29/20 11:05 Pulse Ox 98 12/29/20 11:05 12/28/20 12/29/20 12/29/20 22:59 06:59 14:59 Intake Total 360 / 760 300 / 1060 1290 / 1290 Balance 360 / 760 300 / 1060 1290 / 1290 Weight last 48 hrs Weight 85.275 kg Physical Exam Const: COMMON NORMALS: no acute distress and patient oriented x3 Neck/C-Spine: COMMON NORMALS: no JVD Resp: COMMON NORMALS: normal respiratory effort, No retractions, No use of accessory muscles and clear to auscultation bilaterally AUSCULTATION: clear to auscultation bilaterally Cardio: COMMON NORMALS: no JVD, regular rate, regular rhythm, S1 normal heart sound present and S2 normal heart sound present RATE: regular rate RHYTHM: regular rhythm HEART SOUNDS: S1 normal heart sound present and S2 normal heart sound present GI: COMMON NORMALS: Normal to inspection, nondistended, normoactive bowel sounds present, Soft to palpation, non-tender, No hepatosplenomegaly present, no masses and no bruits PALPATION: Yes Soft to palpation and Yes No hepatosplenomegaly present Extremity: NARRATIVE EXTREMITY EXAM: Left lower extremity redness, swelling, extending now from the ankle all the way to mid thigh Neuro: COMMON NORMALS: patient oriented x3 Data : 12/29/20 03:44 12/29/20 03:44 Micro: Microbiology 12/28/20 11:35 Blood Culture - Preliminary Blood NEGATIVE TO DATE 12/28/20 11:55 Blood Culture - Preliminary Blood SPECIMEN COLLECTED A&P Assessment and plan (1) Erysipelas of left lower extremity: Status: Acute (2) Tinea pedis of left foot: Status: Acute (3) Asthma: not acute, chronically on albuterol as needed, on cetirizine/flonase Status: Chronic Qualifiers: Asthma severity: mild Asthma persistence: intermittent Asthma complication type: uncomplicated Qualified Code(s): J45.20 - Mild intermittent asthma, uncomplicated (4) Mixed hyperlipidemia: chronically on statin Status: Chronic (5) Hypothyroid: chronically on levothyroxine Status: Chronic Qualifiers: Hypothyroidism type: acquired Qualified Code(s): E03.9 - Hypothyroidism, unspecified (6) Major depressive disorder, recurrent, in full remission with anxious distress: chronically on wellbutrin SR Status: Chronic (7) Idiopathic mild intellectual disability: Galina Lobo [phone] is call or contact centre manager, 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 states that people at [facility] makes decisions for her Status: Chronic Additional A&P Information Inpatient admission Continue vancomycin and Rocephin Check sed rate 73 and CRP 111.7 and blood in the lab, WBC up to 14.3, afebrile, clinically looking better Venous duplex negative for DVT Elevate left lower extremity Lotrimin cream to feet Follow-up pending blood cultures Serial extremity exams, monitoring closely for progressive or hemorrhagic blistering, crepitus, increasing pain or other concerning clinical changes hemoglobin A1c 5.3 DC IV fluids Lovenox for DVT prophylaxis Pain control Supportive care otherwise Anticipate disposition back to [facility] when medically stable 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[employer] and does not make decisions without input from facility staff/guardian Full code Attestations Medical Necessity Statement*: Patient requires hospitalization for cellulitis/erysipelas of left lower extremity requiring IV antibiotic therapy Coding Level of Care Code Acute 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
[2020-12-29 15:32] VITALS: BP 131/85; PULSE 80; RESP 18; TEMP 37; O2SAT 97
[2020-12-29] MEDS: enoxaparin 40 mg/0.4 mL Syringe SUBCUT (17:01)
[2020-12-29 19:50] VITALS: BP 119/78; PULSE 82; RESP 17; TEMP 37.1; O2SAT 97
[2020-12-29] MEDS: atorvastatin 40 mg Tablet 20 MG PO (20:31)
[2020-12-29] MEDS: cetirizine 10 mg Tablet PO (20:31)
[2020-12-29 23:39] LABS: Vancomycin Trough 9.2 ug/mL (10-15)
[2020-12-29 23:52] VITALS: BP 118/78; PULSE 89; RESP 17; TEMP 37.2; O2SAT 97
[2020-12-30] VITALS (7 sets, daily range): BP systolic 113–138; BP diastolic 69–78; PULSE 72–92; RESP 17–18; TEMP 36.5–37.2; O2SAT 95–98
[2020-12-30 06:25] LABS: Basophils # 0.1 10^3/uL (0.0-0.1); Basophils % 0.6 %; Eosinophils # 0.3 10^3/uL (0.0-0.8); Eosinophils % 2.2 %; Hematocrit 37.2 % (37.0-47.0); Hemoglobin 11.8 g/dL (11.5-15.3); Lymphocytes # 2.9 10^3/uL (0.8-4.8); Lymphocytes % 22.8 %; Mean Corpuscular HGB Conc 31.7 g/dL (30.0-36.0); Mean Corpuscular Hemoglobin 29.9 pg (28.0-34.0); Mean Corpuscular Volume 94.2 fL (81-99); Mean Platelet Volume 9.5 fL (7.4-10.4); Monocytes # 1.1 10^3/uL (0.2-0.9); Monocytes % 8.5 %; Neutrophils # 8.07 10^3/uL (1.8-7.7); Neutrophils % 64.6 %; Nucleated Red Blood Cells % 0 %; Platelet Count 514 10^3/cmm (130-400); Red Blood Count 3.95 10^6/uL (4.1-5.3); Red Cell Distribution Width 14.3 % (12.1-15.1); White Blood Count 12.5 10^3/uL (4.0-10.0)
[2020-12-30 06:46] LABS: Alanine Aminotransferase 11 U/L (0-33); Albumin Level 2.7 g/dL (3.5-5.2); Alkaline Phosphatase 60 IU/L (35-105); Anion Gap 11.2 (5-19); Aspartate Amino Transferase 11 U/L (0-32); Blood Urea Nitrogen 9 mg/dL (6-20); C Reactive Protein 79.8 mg/L (0.0-4.9); Calcium 8.1 mg/dL (8.5-10.5); Carbon Dioxide 27 mmol/L (22-29); Chloride 105 mmol/L (98-107); Globulin 3.4 g/dL (1.3-4.6); Glomerular Filtration Rate 109.6 mL/min (90-130); Glucose 74 mg/dL (65-115); Osmolality Calculated 285 mOsm/kg (285-295); Potassium 4.2 mmol/L (3.5-5.1); Sodium 139 mmol/L (136-145); Total Bilirubin 0.2 mg/dL (0.15-1.2); Total Protein 6.1 g/dL (6.6-8.7)
[2020-12-30 07:19] LABS: Procalcitonin 0.07 ng/mL (0-0.5)
[2020-12-30] MEDS: clotrimazole 1% cream 30 gm 1 APPLIC TOPICAL ×2 (08:34→17:46)
[2020-12-30] MEDS: buPROPion SR (12 HR) 150 mg Tablet PO ×2 (08:34→20:32)
[2020-12-30] MEDS: LORazepam 0.5 mg Tablet 0.25 MG PO ×3 (08:35→20:32)
[2020-12-30] MEDS: meloxicam 7.5 mg tablet 15 MG PO (08:35)
[2020-12-30] MEDS: pantoprazole DR 40 mg Tablet PO (08:35)
[2020-12-30] MEDS: levothyroxine 50 mcg Tablet PO (08:35)
--- NOTE | 2020-12-30 11:56 | PM.PN ---
Subjective Subjective: Interval history: Patient was seen this morning, she does have complaints of mild bouts of diarrhea, no fevers overnight, no nausea, vomiting, her area of cellulitis is improving, however the area along the right mid thigh remains quite red and and warm, she does have some blisters over the right knee, and right ankle, him not ruptured Vitals/I&O/Wt Last Vital Signs Temp 98.2 F 12/30/20 08:00 Pulse 72 12/30/20 08:00 Resp 17 12/30/20 08:00 BP 126/78 12/30/20 08:00 Pulse Ox 95 12/30/20 08:00 12/29/20 12/30/20 12/30/20 22:59 06:59 14:59 Intake Total 360 / 2062.5 300 / 2362.5 120 / 120 Balance 360 / 2062.5 300 / 2362.5 120 / 120 Physical Exam Const: COMMON NORMALS: no acute distress and patient oriented x3 Neck/C-Spine: COMMON NORMALS: no JVD Resp: COMMON NORMALS: normal respiratory effort, No retractions, No use of accessory muscles and clear to auscultation bilaterally AUSCULTATION: clear to auscultation bilaterally Cardio: COMMON NORMALS: no JVD, regular rate, regular rhythm, S1 normal heart sound present and S2 normal heart sound present RATE: regular rate RHYTHM: regular rhythm HEART SOUNDS: S1 normal heart sound present and S2 normal heart sound present GI: COMMON NORMALS: Normal to inspection, nondistended, normoactive bowel sounds present, Soft to palpation and non-tender PALPATION: Yes Soft to palpation Extremity: COMMON NORMALS: no pedal edema Neuro: COMMON NORMALS: patient oriented x3 Psych: COMMON NORMALS: mental status grossly normal Skin: NARRATIVE SKIN EXAM: Left lower extremity, area of cellulitis extending from mid thigh all the way down to ankle, red, hot, swollen, with blisters along the left ankle, and left knee Data : 12/30/20 04:35 12/30/20 04:35 Micro: Microbiology 12/28/20 11:55 Blood Culture - Preliminary Blood NEGATIVE TO DATE 12/28/20 11:35 Blood Culture - Preliminary Blood NEGATIVE TO DATE A&P Assessment and plan (1) Erysipelas of left lower extremity: Status: Acute (2) Tinea pedis of left foot: Status: Acute (3) Asthma: not acute, chronically on albuterol as needed, on cetirizine/flonase Status: Chronic Qualifiers: Asthma severity: mild Asthma persistence: intermittent Asthma complication type: uncomplicated Qualified Code(s): J45.20 - Mild intermittent asthma, uncomplicated (4) Mixed hyperlipidemia: chronically on statin Status: Chronic (5) Hypothyroid: chronically on levothyroxine Status: Chronic Qualifiers: Hypothyroidism type: acquired Qualified Code(s): E03.9 - Hypothyroidism, unspecified (6) Major depressive disorder, recurrent, in full remission with anxious distress: chronically on wellbutrin SR Status: Chronic (7) Idiopathic mild intellectual disability: Galina Lobo [phone] is contact lens 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, 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 states that people at [facility] makes decisions for her Status: Chronic Additional A&P Information Inpatient admission Continue vancomycin and Rocephin Check sed rate 73 and CRP 111.7 and blood in the lab, WBC up to 12.5, afebrile, clinically looking better Venous duplex negative for DVT Elevate left lower extremity Lotrimin cream to feet Follow-up pending blood cultures Serial extremity exams, monitoring closely for progressive or hemorrhagic blistering, crepitus, increasing pain or other concerning clinical changes hemoglobin A1c 5.3 DC IV fluids Lovenox for DVT prophylaxis Pain control Supportive care otherwise Anticipate disposition back to 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
[2020-12-30] MEDS: vancomycin 1,250 MG/250 ML PIGGYBACK 250 MG IV (12:09)
[2020-12-30] MEDS: enoxaparin 40 mg/0.4 mL Syringe SUBCUT (17:44)
--- NOTE | 2020-12-30 17:50 | PC.NURSE ---
1750 Left foot more edematous and upper left leg more edematous. Trying to contact Dr. Humphries.
--- NOTE | 2020-12-30 18:49 | PC.NURSE ---
[address] Humphries, he will put in orders for CT and Ultrasound
[2020-12-30] MEDS: cetirizine 10 mg Tablet PO (20:32)
[2020-12-30] MEDS: docusate sodium 100 mg Capsule PO (20:32)
[2020-12-30] MEDS: atorvastatin 40 mg Tablet 20 MG PO (20:32)
[2020-12-30] MEDS: cefTRIAXone 1,000 MG in sodium chloride 0.9% (plus) 50 ML 100 MG IV (23:21)
[2020-12-31] VITALS (9 sets, daily range): BP systolic 109–137; BP diastolic 71–83; PULSE 65–87; RESP 16–18; TEMP 36.3–37; O2SAT 94–98
[2020-12-31] MEDS: vancomycin 1,250 MG/250 ML PIGGYBACK 250 MG IV ×3 (00:15→23:58)
[2020-12-31 04:25] LABS: Basophils # 0.1 10^3/uL (0.0-0.1); Basophils % 0.7 %; Eosinophils # 0.4 10^3/uL (0.0-0.8); Hematocrit 38.8 % (37.0-47.0); Hemoglobin 12.4 g/dL (11.5-15.3); Lymphocytes # 3.3 10^3/uL (0.8-4.8); Lymphocytes % 27.4 %; Mean Corpuscular Hemoglobin 29.7 pg (28.0-34.0); Mean Corpuscular Volume 92.8 fL (81-99); Mean Platelet Volume 8.9 fL (7.4-10.4); Monocytes # 0.8 10^3/uL (0.2-0.9); Monocytes % 6.9 %; Neutrophils % 60.3 %; Nucleated Red Blood Cells % 0 %; Platelet Count 522 10^3/cmm (130-400); Red Blood Count 4.18 10^6/uL (4.1-5.3); Red Cell Distribution Width 14.2 % (12.1-15.1)
[2020-12-31 06:25] LABS: Procalcitonin 0.03 ng/mL (0-0.5)
[2020-12-31 06:43] LABS: Alanine Aminotransferase 11 U/L (0-33); Albumin Level 2.7 g/dL (3.5-5.2); Alkaline Phosphatase 55 IU/L (35-105); Anion Gap 12.2 (5-19); Aspartate Amino Transferase 11 U/L (0-32); Blood Urea Nitrogen 8 mg/dL (6-20); C Reactive Protein 49.6 mg/L (0.0-4.9); Calcium 7.8 mg/dL (8.5-10.5); Carbon Dioxide 26 mmol/L (22-29); Chloride 105 mmol/L (98-107); Globulin 3.5 g/dL (1.3-4.6); Glomerular Filtration Rate 109.6 mL/min (90-130); Glucose 85 mg/dL (65-115); Osmolality Calculated 286 mOsm/kg (285-295); Potassium 4.2 mmol/L (3.5-5.1); Sodium 139 mmol/L (136-145); Total Bilirubin 0.2 mg/dL (0.15-1.2); Total Protein 6.2 g/dL (6.6-8.7)
[2020-12-31] MEDS: buPROPion SR (12 HR) 150 mg Tablet PO ×2 (07:53→20:13)
[2020-12-31] MEDS: docusate sodium 100 mg Capsule PO (07:54)
[2020-12-31] MEDS: levothyroxine 50 mcg Tablet PO (07:59)
[2020-12-31] MEDS: meloxicam 7.5 mg tablet 15 MG PO (07:59)
[2020-12-31] MEDS: clotrimazole 1% cream 30 gm 1 APPLIC TOPICAL ×2 (08:00→18:11)
[2020-12-31] MEDS: pantoprazole DR 40 mg Tablet PO (08:00)
[2020-12-31] MEDS: LORazepam 0.5 mg Tablet 0.25 MG PO ×3 (08:00→20:13)
--- NOTE | 2020-12-31 09:42 | CT_ITS ---
WS: [id number] NONCONTRAST CT LEFT FEMUR TECHNIQUE: Noncontrast CT left femur with coronal and sagittal reformatted images. CLINICAL INFORMATION: cellultiis COMPARISON: None. DLP: 2814.[address] scans at [facility] use at least one of these dose optimization techniques: automat ed exposure control; mA and/or kV adjustment per patient size (includes targeted exams where dose is matched to clinical indication); or iterative reconstruction. FINDINGS: Diffuse induration involving the left thigh subcutaneous soft tissues consistent with cellulitis. No evidence of drainable abscess or fluid collection. Associated skin thickening. Cellulitis appears mor e prominent in the mid to distal thigh. No evidence of osteomyelitis. Partially visualized lateral subluxation of the patella. Recommend deng elation for patellar instability. Small amount of edema and fluid in the subcutaneous soft tissues ab out the knee. CT/CT femur LT wo con* [id number] IMPRESSION: 1. Diffuse subcutaneous edema left thigh consistent with cellulitis. No draina ble abscess or fluid collection. 2. No evidence of osteomyelitis. 3. Lateral subluxation of the patella may be due to positioning. Recommend cli nical correlation for patellar instability or recent trauma. Fluid and soft tis stephanie edema about the joint line.
--- NOTE | 2020-12-31 09:42 | CT_ITS ---
WS: [id number] NONCONTRAST CT LEFT LOWER EXTREMITY TECHNIQUE: Noncontrast CT with coronal and sagittal reformatted images. CLINICAL INFORMATION: ct leg COMPARISON: None. DLP: 942.[address] scans at [facility] use at least one of these dose optimization techniques: automat ed exposure control; mA and/or kV adjustment per patient size (includes targeted exams where dose is matched to clinical indication); or iterative reconstruction. FINDINGS: Diffuse subcutaneous edema involving the left lower leg extending to the foot consistent with celluli tis. No evidence of drainable abscess or fluid collection. No Evidence of osteomyelitis. Lateral subluxation of the patella may be due to positioning recommend correlation for patellar insta bility or recent injury. Soft tissue edema with a small amount of fluid about the left knee and joint line. No visualized fractures. Normal tibia and fibula. Pes planus. Plantar calcaneal spurring. Norm al talar dome. CT/CT lower leg LT wo con* [id number] IMPRESSION: 1. Diffuse cellulitis lower leg. No evidence of drainable abscess or fluid col lection. 2. No evidence of osteomyelitis. 3. Normal ankle mortise. Normal tibia and fibula. 4. Fluid and soft tissue edema more prominent about the knee with lateral subl uxation of the patella. This may be due to positioning but recommend correlatio n for patellar instability.
--- NOTE | 2020-12-31 09:43 | USCV_ITS ---
Brenda Correia Age: 40 Gender: F : 1980 Exam Date: 12/31/2020 14:52 Ordering Phys: Remy Humphries MD Technologist: Duong Gomez Exam Location: [facility] [place] Indication: POOR PULSES ON LT RIGHT LEFT Brachial 120.00 mmHg Brachial 120.00 mmHg Pressure (mmHg) Waveform Pressure (mmHg) Waveform 125.00 MEDICAL OFFICER 120.00 125.00 DPA 120.00 1.10 Ankle/Brachial Index 1.00 FINDINGS Normal resting ABIs bilaterally Poor Doppler signals in the dorsalis pedis arteries bilaterally CONCLUSIONS No significant arterial obstruction, based on the above findings The poor Doppler signals could be related to technical issues. [id number] Dr Porfirio Weinstein MD [facility] (Electronically Signed) Final Date: 01 Jan 2021 13:22 S
--- NOTE | 2020-12-31 09:43 | USCV_ITS ---
Brenda Correia Age: 40 Gender: F : 1980 Exam Date: 12/31/2020 14:47 Ordering Phys: Remy Humphries MD Technologist: Duong Gomez [place] [facility] [place] Indication: LT LEG SWELLING HISTORY: Lower extremity swelling. PROCEDURES: Venous duplex imaging was performed in only the left lower extremity. The following venous structures were evaluated: common femoral vein, profunda vein, proximal portion of the greater saphenous vein, superficial femoral vein, and the popliteal vein. In addition, the posterior tibial and peroneal trunk were evaluated. On the left side, the common femoral, superficial femoral, profunda femoral, popliteal, posterior tibial, greater saphenous veins, and the peroneal trunk were identified and interrogated in the standard fashion. These veins were found to be easily compressible with spontaneous blood flow. No evidence of insufficiency or thrombus noted. FINDINGS: Normal 2-D Doppler and augmentation and compressibility throughout the lower extremity venous structures. Additional imaging through the proximal calf veins also reveals no thrombus. Limited evaluation of the greater saphenous vein is patent with no thrombus.. The veins were found to be easily compressible with spontaneous blood flow. Non pulsatile flow pattern. Echolucent areas are noted in the subcutaneous tissue. CONCLUSIONS No evidence of DVT in the above-mentioned identifiable veins. Some features of fluid retention/edema. Dr Porfirio Weinstein MD [facility] (Electronically Signed) Final Date: 01 Jan 2021 13:15 S
--- NOTE | 2020-12-31 10:28 | PC.SOCIAL ---
IMM Update Pg. 2 of IMM updated. Copy provided and explained to patient. Attempted to contact guardian, unsuccessfully, voicemail left.
--- NOTE | 2020-12-31 10:41 | PC.CHAP ---
Pastoral Care Encounter/Spiritual Assessment Type of Contact [] Declined loom overhauler visit [] Patient/Family/Request visit [] Outpatient visit [] Follow-up visit [] Physician referral [] Code/Alert [] Routine visit [] Staff referral [] Actively dying [] Patient sleeping [] Family support [] [] Out of room [] Palliative care [] [] Receiving care in room [] Pre-surgical visit [] Trauma [] Long length of stay [] ICU visit [] Other: Relational/Emotional Strength [X] Patient feels connected with others/family/visitors/staff [] Distress [] Loneliness/isolation [] Abandonment Spirituality of Patient [X] Person of Daisy [X] Attends Jainism of their Daisy []X Believes in Prayer [] Reads Bible or Advent materials [] There are Spiritual issues to be addressed [place] Interventions [X] Prayer [X] Active listening [X] Non-anxious presence [] Spiritual/emotional support [] Crisis/trauma care [] Spiritual counseling [] Bereavement support [] Provided bereavement packet [] Provided Bible/devotional materials [] Provided toy/stuffed animal, coloring book to patient or family member [] Provided Communion [] Anointing/[place] [] Salvation [X] Completed spiritual assessment [] Other: Impact on Illness or Injury [] Angry [] Fearful [] Anxious [] Often cries [] Exhaustion [] Unable to work [] Unable to attend muslim [] Unable to walk/stand [] Unable to read [] Unable to drive [] Unable to eat/drink [] Unable to sleep [] Unable to be with family [] Patient intubated [] Other: Summary PATIENT FEELING BETTER Time spent with patient 10 MIN
[2020-12-31] MEDS: FUROsemide 10 mg/mL SDV 4mL 40 MG IVP (10:56)
--- NOTE | 2020-12-31 12:32 | P.PN_ITS ---
Subjective Subjective: Interval history: Patient was examined this morning, she is feeling well, but is still concerned about the area of redness on her left lower extremity, she is developing some blisters over her forefoot, no pain, no itching, no known exposure to shingles Vitals/I&O/Wt Last Vital Signs Temp 98.5 F 12/31/20 12:00 Pulse 72 12/31/20 12:00 Resp 17 12/31/20 12:00 BP 123/83 12/31/20 12:00 Pulse Ox 94 12/31/20 12:00 12/30/20 12/31/20 12/31/20 22:59 06:59 14:59 Intake Total 490 / 850 300 / 1150 240 / 240 Output Total 300 / 300 Balance 490 / 850 0 / 850 240 / 240 Physical Exam Const: COMMON NORMALS: no acute distress and patient oriented x3 Resp: COMMON NORMALS: normal respiratory effort, No retractions, No use of accessory muscles and clear to auscultation bilaterally AUSCULTATION: clear to auscultation bilaterally Cardio: COMMON NORMALS: regular rate, regular rhythm, S1 normal heart sound present and S2 normal heart sound present RATE: regular rate RHYTHM: regular rhythm HEART SOUNDS: S1 normal heart sound present and S2 normal heart sound present GI: COMMON NORMALS: Normal to inspection, nondistended, normoactive bowel sounds present, Soft to palpation and non-tender PALPATION: Yes Soft to palpation Extremity: COMMON NORMALS: no pedal edema Neuro: COMMON NORMALS: patient oriented x3 Psych: COMMON NORMALS: mental status grossly normal Skin: NARRATIVE SKIN EXAM: Left lower extremity, area of cellulitis extending from mid thigh all the way down to ankle, red, hot, swollen, with blisters along the left ankle, and left knee Data : 12/31/20 04:17 12/31/20 05:33 A&P Assessment and plan (1) Erysipelas of left lower extremity: Status: Acute (2) Tinea pedis of left foot: Status: Acute (3) Asthma: not acute, chronically on albuterol as needed, on cetirizine/flonase Status: Chronic Qualifiers: Asthma severity: mild Asthma persistence: intermittent Asthma complication type: uncomplicated Qualified Code(s): J45.20 - Mild intermittent asthma, uncomplicated (4) Mixed hyperlipidemia: chronically on statin Status: Chronic (5) Hypothyroid: chronically on levothyroxine Status: Chronic Qualifiers: Hypothyroidism type: acquired Qualified Code(s): E03.9 - Hypothyroidism, unspecified (6) Major depressive disorder, recurrent, in full remission with anxious distress: chronically on wellbutrin SR Status: Chronic (7) Idiopathic mild intellectual disability: Galina Lobo [phone] 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, 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 states that people at [place] makes decisions for her Status: Chronic Additional A&P Information Area of cellulitis has improved, however does continue to have dense areas of redness around the right medial thigh, new blisters are developing over the forefoot Inpatient admission Continue vancomycin and Rocephin Check sed rate 73 and CRP 111.7 and blood in the lab, WBC up to 12.5, afebrile, clinically looking better Will do CT imaging, ABIs, repeat ultrasound Clinically this does not seem like shingles, as she has multiple areas of blisters, one on the forefoot, 1 on the knee joint, however it can be into apical shingles, will continue to monitor Venous duplex negative for DVT Elevate left lower extremity Lotrimin cream to feet Follow-up pending blood cultures Serial extremity exams, monitoring closely for progressive or hemorrhagic blistering, crepitus, increasing pain or other concerning clinical changes hemoglobin A1c 5.3 DC IV fluids Lovenox for DVT prophylaxis Pain control Supportive care otherwise Anticipate disposition back to [facility] when medically stable 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 and does not make decisions without input from facility staff/guardian Full code Plan for today continue antibiotics, CT imaging, repeat ultrasound, ABIs, continue to clinically monitor Attestations Medical Necessity Statement*: Patient requires hospitalization, for cellulitis of left lower extremity Coding Level of Care Code 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
[2020-12-31] MEDS: enoxaparin 40 mg/0.4 mL Syringe SUBCUT (18:11)
[2020-12-31] MEDS: cefTRIAXone 1,000 MG in sodium chloride 0.9% (plus) 50 ML 100 MG IV (19:24)
[2020-12-31] MEDS: atorvastatin 40 mg Tablet 20 MG PO (20:13)
[2020-12-31] MEDS: cetirizine 10 mg Tablet PO (20:13)
[2020-12-31 23:48] LABS: Vancomycin Trough 8.7 ug/mL (10-15)
[2021-01-01 04:00] VITALS: BP 106/73; PULSE 83; RESP 16; TEMP 36.8; O2SAT 95
[2021-01-01] MEDS: cefTRIAXone 1,000 MG in sodium chloride 0.9% (plus) 50 ML 100 MG IV (06:18)
[2021-01-01 06:37] LABS: Basophils # 0.1 10^3/uL (0.0-0.1); Basophils % 0.6 %; Eosinophils # 0.3 10^3/uL (0.0-0.8); Eosinophils % 2.1 %; Hematocrit 39.3 % (37.0-47.0); Hemoglobin 12.3 g/dL (11.5-15.3); Lymphocytes % 24.1 %; Mean Corpuscular HGB Conc 31.3 g/dL (30.0-36.0); Mean Corpuscular Hemoglobin 29.3 pg (28.0-34.0); Mean Corpuscular Volume 93.6 fL (81-99); Mean Platelet Volume 8.9 fL (7.4-10.4); Monocytes # 0.8 10^3/uL (0.2-0.9); Monocytes % 6.5 %; Neutrophils # 8.07 10^3/uL (1.8-7.7); Neutrophils % 65.2 %; Nucleated Red Blood Cells % 0 %; Platelet Count 626 10^3/cmm (130-400); Red Cell Distribution Width 14.2 % (12.1-15.1); White Blood Count 12.4 10^3/uL (4.0-10.0)
[2021-01-01 07:01] LABS: Procalcitonin 0.04 ng/mL (0-0.5)
[2021-01-01 07:02] LABS: Alanine Aminotransferase 14 U/L (0-33); Alkaline Phosphatase 58 IU/L (35-105); Anion Gap 12.3 (5-19); Aspartate Amino Transferase 14 U/L (0-32); Blood Urea Nitrogen 10 mg/dL (6-20); Calcium 8.1 mg/dL (8.5-10.5); Carbon Dioxide 25 mmol/L (22-29); Chloride 105 mmol/L (98-107); Globulin 3.4 g/dL (1.3-4.6); Glomerular Filtration Rate 109.6 mL/min (90-130); Glucose 81 mg/dL (65-115); Osmolality Calculated 284 mOsm/kg (285-295); Potassium 4.3 mmol/L (3.5-5.1); Sodium 138 mmol/L (136-145); Total Bilirubin 0.2 mg/dL (0.15-1.2); Total Protein 6.4 g/dL (6.6-8.7)
[2021-01-01 07:09] VITALS: BP 111/66; PULSE 73; RESP 17; TEMP 36.9; O2SAT 98
[2021-01-01] MEDS: vancomycin 1,250 MG/250 ML PIGGYBACK 250 MG IV (10:17)
[2021-01-01] MEDS: meloxicam 7.5 mg tablet 15 MG PO (10:17)
[2021-01-01] MEDS: buPROPion SR (12 HR) 150 mg Tablet PO (10:18)
[2021-01-01] MEDS: docusate sodium 100 mg Capsule PO (10:18)
[2021-01-01] MEDS: LORazepam 0.5 mg Tablet 0.25 MG PO (10:19)
[2021-01-01] MEDS: FUROsemide 10 mg/mL SDV 4mL 40 MG IVP (10:20)
[2021-01-01] MEDS: pantoprazole DR 40 mg Tablet PO (10:20)
[2021-01-01] MEDS: clotrimazole 1% cream 30 gm 1 APPLIC TOPICAL (10:20)
[2021-01-01] MEDS: levothyroxine 50 mcg Tablet PO (10:20)
[2021-01-01 11:10] VITALS: BP 160/70; PULSE 47; RESP 17; TEMP 36.7; O2SAT 93
--- NOTE | 2021-01-01 11:16 | P.DS_ITS ---
Discharge Providers Date of Admission: 12/28/20 12:34 Date of Discharge: January 01, 2021 Attending Provider at Admission: Ping Ku MD Attending Provider at Discharge: Remy Humphries MD Primary Care Provider: MAUREEN Cummins Diagnoses at Discharge Discharge Diagnosis (1) Erysipelas of left lower extremity: Status: Acute (2) Tinea pedis of left foot: Status: Acute (3) Asthma: Status: Chronic Qualifiers: Asthma severity: mild Asthma persistence: intermittent Asthma complication type: uncomplicated Qualified Code(s): J45.20 - Mild intermittent asthma, uncomplicated (4) Mixed hyperlipidemia: Status: Chronic (5) Hypothyroid: Status: Chronic Qualifiers: Hypothyroidism type: acquired Qualified Code(s): E03.9 - Hypothyroidism, unspecified (6) Major depressive disorder, recurrent, in full remission with anxious distress: Status: Chronic (7) Idiopathic mild intellectual disability: Status: Chronic Reason for Visit Reason for Visit: LEFT LEG PAIN WITH EDEMA Hospital Course Hospital Course This is a 40-year-old female with past medical history of asthma, hypothyroidism, mild intellectual disability, hyperlipidemia, depression, who presents to [facility] due to complaints of increased redness and swelling around her left lower extremity. For her left lower extremity cellulitis/erysipelas extending from mid thigh all the way down to the ankles with a few blisters, she received broad-spectrum antibiotic therapy, her initial venous ultrasound was negative for DVT, she had a slow clinical progress, this is CT scan of the lower extremity was ordered to evaluate for possible underlying abscess or osteomyelitis, only diffuse cellulitis was seen. Patient was maintained on broad-spectrum antibiotic thera py, clinically improved, discharged on 10 remaining days of doxycycline Augmentin with close follow-up with primary care provider as outpatient. Patient's ABIs are pending on discharge and should follow-up as outpatient for results. Physical Exam Const: COMMON NORMALS: no acute distress and patient oriented x3 Neck/C-Spine: COMMON NORMALS: no JVD Resp: COMMON NORMALS: normal respiratory effort, No retractions, No use of accessory muscles and clear to auscultation bilaterally AUSCULTATION: clear to auscultation bilaterally Cardio: COMMON NORMALS: no JVD, regular rate, regular rhythm, S1 normal heart sound present and S2 normal heart sound present RATE: regular rate RHYTHM: regular rhythm HEART SOUNDS: S1 normal heart sound present and S2 normal heart sound present GI: COMMON NORMALS: Normal to inspection, nondistended, normoactive bowel sounds present, Soft to palpation, non-tender, No hepatosplenomegaly present, no masses and no bruits PALPATION: Yes Soft to palpation and Yes No hepatosplenomegaly present Extremity: NARRATIVE EXTREMITY EXAM: 1+ edema Neuro: COMMON NORMALS: patient oriented x3 Skin: NARRATIVE SKIN EXAM: Left lower extremity, area of cellulitis extending from mid thigh all the way down to ankle,significantly improved, blisters Discharge Data Data Completed and Pending: Completed Studies During Hospitalization Category Date Time Status CT femur LT wo co n* [id number] Routine Cat Scan 12/31/20 09:[address] lower leg LT w o con* [id number] Routi ne Cat Scan 12/31/20 09:42 Completed Pending at discharge Category Date Time Status Blood Culture Sta t Lab 12/28/20 11:55 Results Vancomycin Trough Timed Lab 01/01/21 23:00 Ordered CV ankle brachial index [id number] Routi ne Ultrasound 12/31/20 09:43 [place] [id number] Routin e Ultrasound 12/31/20 09:43 Taken Labs from last 24 hours 01/01/21 01/01/21 01/01/21 05:20 05:20 05:20 WBC 12.4 H RBC 4.20 Hgb 12.3 Hct 39.3 MCV 93.6 MCH 29.3 MCHC 31.3 RDW 14.2 Plt Count 626 H MPV 8.9 Neut % (Auto) 65.2 Lymph % (Auto) 24.1 [place] % (Auto) 6.5 Eos % (Auto) 2.1 Baso % (Auto) 0.6 Neut # (Auto) 8.07 H Lymph # (Auto) 3.0 [place] # (Auto) 0.8 Eos # (Auto) 0.3 Baso # (Auto) 0.1 Nucleated RBC % (a uto) 0 Nucleated RBCs # 0.0 Sodium 138 Potassium 4.3 Chloride 105 Carbon Dioxide 25 Anion Gap 12.3 BUN 10 Creatinine 0.6 GFR Calculation 109.6 Glucose 81 Calculated Osmolal ity 284 L Calcium 8.1 L Total Bilirubin 0.2 AST 14 ALT 14 Alkaline Phosphata se 58 C-Reactive Protein 26.0 H Total Protein 6.4 L Albumin 3.0 L Globulin 3.4 Procalcitonin 0.04 Vancomycin Trough 12/31/20 23:05 WBC RBC Hgb Hct MCV MCH MCHC RDW Plt Count MPV Neut % (Auto) Lymph % (Auto) [place] % (Auto) Eos % (Auto) Baso % (Auto) Neut # (Auto) Lymph # (Auto) [place] # (Auto) Eos # (Auto) Baso # (Auto) Nucleated RBC % (a uto) Nucleated RBCs # Sodium Potassium Chloride Carbon Dioxide Anion Gap BUN Creatinine GFR Calculation Glucose Calculated Osmolal ity Calcium Total Bilirubin AST ALT Alkaline Phosphata se C-Reactive Protein Total Protein Albumin Globulin Procalcitonin Vancomycin Trough 8.7 L Vitals: Last Vital Signs Temp 98.0 F 01/01/21 11:10 Pulse 47 L 01/01/21 11:10 Resp 17 01/01/21 11:10 BP 160/70 01/01/21 11:10 Pulse Ox 93 01/01/21 11:10 Discharge Plan Discharge Patient Disposition: Home Condition: Stable Prescriptions: New furosemide [Lasix] 20 mg tablet 20 mg PO DAILY 5 Days Qty: 5 RF: 0 potassium chloride [Klor-Con 10] 10 mEq tablet extended release 10 meq PO DAILY 5 Days Qty: 5 RF: 0 amoxicillin-pot clavulanate [Augmentin] 875-125 mg tablet 1 tab PO BID 10 Days Qty: 20 RF: 0 doxycycline hyclate 100 mg capsule 100 mg PO BID 10 Days Qty: 20 RF: 0 Continued levothyroxine 50 mcg tablet 50 mcg PO DAILY RF: 0 albuterol sulfate 90 mcg/actuation HFA aerosol inhaler 2 puff inhalation Q6H PRN (Reason: shortness of breath or wheezing) RF: 0 albuterol sulfate 2.5 mg /3 mL (0.083 %) solution for nebulization 2.5 mg INHALATION TID RF: 0 atorvastatin 20 mg tablet 20 mg PO DAILY@2099 RF: 0 cetirizine [Zyrtec] 10 mg tablet 10 mg PO DAILY@2099 RF: 0 ergocalciferol (vitamin D2) 1,250 mcg (50,000 unit) capsule 1,250 mcg PO .weekly Qty: 4 RF: 5 Wellbutrin SR 150 mg tablet sustained-release 12 hr 150 mg PO BID@ RF: 0 trazodone 50 mg tablet 50 mg PO BEDTIME PRN (Reason: sleep) RF: 0 meloxicam 15 mg tablet 15 mg PO DAILY@2100 RF: 0 lorazepam 0.5 mg tablet 0.25 mg PO TID RF: 0 Colace 100 mg capsule 100 mg PO BID@ RF: 0 fluticasone propionate 50 mcg/actuation spray,suspension 2 spray intranasal DAILY RF: 0 omega-3 acid ethyl esters 1 gram capsule 2 cap PO BID@ RF: 0 melatonin 5 mg capsule 5 mg PO BEDTIME RF: 0 Discontinued clindamycin HCl 300 mg capsule 300 mg PO TID 10 Days Qty: 30 RF: 0 Discharge Orders: Discharge Order (Routine); Ordered 01/01/21 Ordered By: Remy Humphries Referrals: PORSCHE Davidson, [employer] [Primary Care Provider] - Discharge Diet: Regular Discharge Activity: Resume usual activity Patient Instructions: Opioid Safety Activity Restrictions/Additional Instructions: -Follow-up with primary care provider in 1 week -Take antibiotics as prescribed -Lasix for the next 5 days, for lower extremity swelling Discharge Attestations Time Spent in Discharge Care*: less than 30 min Quality Metrics Clinical Quality Measures During this hospital stay, did patient experience: None Coding Level of Care Code Acute Chg FW DC note Diagnoses Erysipelas of left lower extremity A46 Tinea pedis of left foot B35.3 Asthma J45.20 Asthma severity: mild Asthma persistence: intermittent Asthma complication type: uncomplicated Mixed hyperlipidemia E78.2 Hypothyroid E03.9 Hypothyroidism type: acquired Major depressive disorder, recurrent, in full remission with anxious distress F33.42 Idiopathic mild intellectual disability F70
[2021-01-01 13:22] VITALS: BP 160/70; PULSE 77; RESP 17; TEMP 36.7; O2SAT 93
== END 2021-01-01 15:45 | disposition home or self-care (01) | DRG 603 ==
LOC: ER 12:35 → MEDSURG 12:50
PROVIDERS: Admitting Provider Hospitalist; Emergency Provider Student in an Organized Health Care Education/Training Program; PCP Nurse Practitioner Family; Visit Provider Family Medicine
DX: L03.116 Cellulitis of left lower limb (principal); A46 Erysipelas; B35.3 Tinea pedis; Z86.14 Personal history of Methicillin resistant Staphylococcus aureus infection; J45.20 Mild intermittent asthma, uncomplicated; E03.9 Hypothyroidism, unspecified; F70 Mild intellectual disabilities; G47.00 Insomnia, unspecified; F33.42 Major depressive disorder, recurrent, in full remission; E78.2 Mixed hyperlipidemia; F41.9 Anxiety disorder, unspecified; Z87.891 Personal history of nicotine dependence; M17.11 Unilateral primary osteoarthritis, right knee; E55.9 Vitamin D deficiency, unspecified; Z79.51 Long term (current) use of inhaled steroids; Z79.891 Long term (current) use of opiate analgesic
CPT/HCPCS: 36415; 73700; 80048; 80053; 80202; 83036; 83605; 83735; 84100; 84145; 85025; 85610; 85651; 85730; 86140; 87040; 93922; 93971; 96365; 96367; 96372; 99285; J0696; J1650; J1940; J3370; J7050

== ENCOUNTER 2021-01-15 14:47 | Outpatient (CLI) | payer MEDICARE, MEDICAID, SELFPAY | END 2021-01-15 14:48 | disposition home or self-care (01) | LOC: WOUND 14:48 | PROVIDERS: PCP Nurse Practitioner Family; Visit Provider Thoracic Surgery (Cardiothoracic Vascular Surgery) | DX: L03.116 Cellulitis of left lower limb (principal); L97.822 Non-pressure chronic ulcer of other part of left lower leg with fat layer exposed | CPT/HCPCS: 97597; G0463 ==

== ENCOUNTER → 2021-05-27 11:52 | Outpatient (BNVA) | payer MEDICARE, MEDICAID, SELFPAY | PROVIDERS: PCP Nurse Practitioner Family; Visit Provider Nurse Practitioner Family | DX: R39.9 Unspecified symptoms and signs involving the genitourinary system (principal) | CPT/HCPCS: 81003 ==

== ENCOUNTER 2021-06-03 10:45 | Outpatient (CLI) | payer MEDICARE, MEDICAID, SELFPAY ==
--- NOTE | 2021-06-03 11:00 | USCV_ITS ---
Brenda Correia Age: 40 Gender: F : 1980 Exam Date: 06/03/2021 10:50 Ordering Phys: PORSCHE Davidson APRN Technologist: ROB Exam Location: [facility] – [place] Indication: near groin area with swelling PROCEDURES: Venous duplex imaging was performed in only the left lower extremity. The following venous structures were evaluated: common femoral vein, profunda vein, proximal portion of the greater saphenous vein, superficial femoral vein, and the popliteal vein. In addition, the posterior tibial and peroneal trunk were evaluated. Serial compression, augmentation maneuvers, and spectral Doppler flow evaluation were performed. FINDINGS: Normal 2-D Doppler and augmentation and compressibility throughout the lower extremity venous structures. Additional imaging through the proximal calf veins also reveals no thrombus. Limited evaluation of the greater saphenous vein is patent with no thrombus.. CONCLUSIONS No evidence of left lower extremity DVT. Xu Joyner MD (Electronically Signed) Final Date: 03 June 2021 17:33 S
== END 2021-06-03 10:46 | disposition home or self-care (01) ==
LOC: RAD 10:47
PROVIDERS: PCP Nurse Practitioner Family; Visit Provider Nurse Practitioner Family
DX: I82.492 Acute embolism and thrombosis of other specified deep vein of left lower extremity (principal); M79.89 Other specified soft tissue disorders
CPT/HCPCS: 93971

== ENCOUNTER → 2021-06-05 07:57 | Outpatient (BNVA) | payer MEDICARE, MEDICAID, SELFPAY | PROVIDERS: PCP Nurse Practitioner Family; Visit Provider Nurse Practitioner Psychiatric/Mental Health | DX: F33.42 Major depressive disorder, recurrent, in full remission (principal); F70 Mild intellectual disabilities; F17.210 Nicotine dependence, cigarettes, uncomplicated | CPT/HCPCS: 99214 ==

== ENCOUNTER → 2021-07-31 12:11 | Outpatient (BNVA) | payer MEDICARE, MEDICAID, SELFPAY | PROVIDERS: PCP Nurse Practitioner Family; Visit Provider Nurse Practitioner Family | DX: E03.9 Hypothyroidism, unspecified (principal); E78.2 Mixed hyperlipidemia; Z79.899 Other long term (current) drug therapy; R39.9 Unspecified symptoms and signs involving the genitourinary system | CPT/HCPCS: 80053; 81003; 84443; 85025 ==

== ENCOUNTER → 2021-09-11 07:37 | Outpatient (BNVA) | payer MEDICARE, MEDICAID, SELFPAY | PROVIDERS: PCP Nurse Practitioner Family; Visit Provider Nurse Practitioner Psychiatric/Mental Health | DX: F33.42 Major depressive disorder, recurrent, in full remission (principal); F70 Mild intellectual disabilities; F17.210 Nicotine dependence, cigarettes, uncomplicated | CPT/HCPCS: 99214 ==

== ENCOUNTER 2021-12-04 10:06 | Outpatient (CLI) | payer MEDICARE, MEDICAID, SELFPAY ==
--- NOTE | 2021-12-04 10:19 | MM_ITS ---
WS: [id number] BILATERAL SCREENING 3D TOMOSYNTHESIS DIGITAL MAMMOGRAM WITH CAD HISTORY: SCREENING COMPARISON: 10/10/2020, 09/13/2019 Bilateral CC and MLO views submitted. Computer aided detection analyzed. Breast composition: There are scattered areas of fibroglandular density. No suspicious masses, microc alcifications or architectural distortion. Focal dense asymmetry upper outer quadrant of the RIGHT br east is stable. MM/[place] [id number] IMPRESSION: BI-RADS: 2-Benign FOLLOW UP: 1 Year Follow-up
== END 2021-12-04 10:07 | disposition home or self-care (01) ==
LOC: RAD 10:16
PROVIDERS: PCP Nurse Practitioner Family; Visit Provider Nurse Practitioner
DX: Z12.31 Encounter for screening mammogram for malignant neoplasm of breast (principal)
CPT/HCPCS: 77063; 77067

== ENCOUNTER → 2021-12-11 08:02 | Outpatient (BNVA) | payer MEDICARE, MEDICAID, SELFPAY | PROVIDERS: PCP Nurse Practitioner Family; Visit Provider Nurse Practitioner Psychiatric/Mental Health | DX: F33.42 Major depressive disorder, recurrent, in full remission (principal); F70 Mild intellectual disabilities; F17.210 Nicotine dependence, cigarettes, uncomplicated | CPT/HCPCS: 99214 ==

== ENCOUNTER → 2021-12-25 10:06 | Outpatient (BNVA) | payer MEDICARE, MEDICAID, SELFPAY | PROVIDERS: PCP Nurse Practitioner Family; Visit Provider Nurse Practitioner | DX: F33.42 Major depressive disorder, recurrent, in full remission (principal); M25.569 Pain in unspecified knee; Z79.899 Other long term (current) drug therapy | CPT/HCPCS: 80053; 81000; 84443; 85025 ==

== ENCOUNTER → 2022-04-09 10:15 | Outpatient (BNVA) | payer MEDICARE, OTHER, SELFPAY | PROVIDERS: PCP Nurse Practitioner Family; Visit Provider Nurse Practitioner | DX: Z79.899 Other long term (current) drug therapy (principal); E55.9 Vitamin D deficiency, unspecified; E03.9 Hypothyroidism, unspecified; E78.2 Mixed hyperlipidemia; F33.42 Major depressive disorder, recurrent, in full remission; J45.909 Unspecified asthma, uncomplicated | CPT/HCPCS: 80053; 80061; 81003; 82306; 83036; 84443; 85025 ==

== ENCOUNTER 2022-12-24 06:59 | Outpatient (CLI) | payer MEDICARE, MEDICAID, SELFPAY ==
--- NOTE | 2022-12-24 07:35 | MM_ITS ---
WS: [id number] BILATERAL SCREENING DIGITAL TOMOSYNTHESIS MAMMOGRAM WITH CAD HISTORY: Screening. COMPARISON: 09/13/2019, 10/10/2020 Bilateral CC and MLO views with tomosynthesis and synthetic mammography submitted. Computer aided det ection analyzed. Breast composition: There are scattered areas of fibroglandular density. No suspicious masses, microc alcifications or architectural distortion. Asymmetric soft tissue persists in the upper-outer quadran t of the RIGHT breast. Benign bilateral lymph nodes. MM/[place] [id number] IMPRESSION: BI-RADS: 2-Benign FOLLOW UP: 1 Year Follow-up
== END 2022-12-24 07:00 | disposition home or self-care (01) ==
LOC: RAD 07:02
PROVIDERS: PCP Nurse Practitioner; Visit Provider Nurse Practitioner
DX: Z12.31 Encounter for screening mammogram for malignant neoplasm of breast (principal); E55.9 Vitamin D deficiency, unspecified; E03.9 Hypothyroidism, unspecified; E78.2 Mixed hyperlipidemia; Z79.899 Other long term (current) drug therapy
CPT/HCPCS: 77063; 77067; 80053; 80061; 81000; 84443; 85025

== ENCOUNTER → 2023-05-20 11:46 | Outpatient (BNVA) | payer MEDICARE, MEDICAID, SELFPAY | PROVIDERS: PCP Nurse Practitioner; Visit Provider Nurse Practitioner | DX: Z79.899 Other long term (current) drug therapy (principal); F33.42 Major depressive disorder, recurrent, in full remission | CPT/HCPCS: 80053; 80061; 81000; 83036; 84443; 85025 ==

== ENCOUNTER → 2023-06-20 11:51 | Outpatient (BNVA) | payer MEDICARE, MEDICAID, OTHER, SELFPAY | PROVIDERS: PCP Nurse Practitioner; Visit Provider Nurse Practitioner Family | DX: J06.9 Acute upper respiratory infection, unspecified (principal); J32.9 Chronic sinusitis, unspecified; B96.89 Other specified bacterial agents as the cause of diseases classified elsewhere | CPT/HCPCS: 87071; 87880 ==

== ENCOUNTER 2023-11-10 11:12 | Emergency (ER) | payer MEDICARE, MEDICAID, SELFPAY ==
[2023-11-10 11:20] VITALS: BP 131/83; PULSE 67; RESP 16; TEMP 36.6; O2SAT 100; BMI 36.1
--- NOTE | 2023-11-10 11:38 | ED_ITS ---
HPI - Abdominal Pain 2 General: Chief Complaint: Abdominal Pain Stated Complaint: abd pain, vomiting Time Seen by Provider: 11/10/23 11:35 History of Present Illness: 43-year-old female with a history of ast hma, hyperlipidemia, depression, hypothyroidism, anxiety who presents to the emergency room with right upper quadrant pain for couple days now. She states she started having pain over 2 days ago and then started having vomiting yesterday. She has had no abdominal surgeries in the past. No altered mental status. No fevers. No dysuria. Review of Systems 2 Narrative: Constitutional symptoms: Negative except as documented in HPI. Skin symptoms: Negative except as documented in HPI. Eye symptoms: Negative except as documented in HPI. ENMT symptoms: Negative except as documented in HPI. Respiratory symptoms: Negative except as documented in HPI. Cardiovascular symptoms: Negative except as documented in HPI. Gastrointestinal symptoms: Negative except as documented in HPI. Genitourinary symptoms: Negative except as documented in HPI. Musculoskeletal symptoms: Negative except as documented in HPI. Neurologic symptoms: Negative except as documented in HPI. Psychiatric symptoms: Negative except as documented in HPI. Endocrine symptoms: Negative except as documented in HPI. PFSH ED 2 PFSH: Medical History (Updated 11/10/23 @ 14:07 by Stephanie Starr MD) Otitis media Upper respiratory infection Hypocalcemia Psychiatric care Bacterial sinusitis UTI symptoms DVT (deep venous thrombosis) Bilateral lower extremity edema Bilateral otitis media Medication management Cellulitis of left leg Insomnia Vitamin D deficiency Osteoarthritis of right knee Hypothyroid Mixed hyperlipidemia H/O methicillin resistant Staphylococcus aureus Asthma Nicotine dependence, cigarettes, uncomplicated Not smoking on 12/28/2020 Idiopathic mild intellectual disability Major depressive disorder, recurrent, in full remission with anxious distress Surgical History History of incision and drainage (~2010) with debridement for abscess in upper back, mrsa Social History Smoking and tobacco/nicotine status: never used tobacco/nicotine Alcohol intake: former Former alcohol use details: quit when moved to [place], never heavy drinker Substance/Drug Use: never Housing: Other Details: [place] Physical Exam 2 Narrative: EXAM NARRATIVE: General: Alert, no acute distress. Skin: Warm, dry. Head: Normocephalic, atraumatic. Neck: Supple, trachea midline. Eye: Extraocular movements are intact. Ears, nose, mouth and throat: mucosa moist. Cardiovascular: Regular, Normal peripheral perfusion. Respiratory: Lungs are clear to auscultation, respirations are non-labored, breath sounds are equal, Symmetrical chest wall expansion. Gastrointestinal: Soft, moderate right upper quadrant pain to palpation,, Non distended, Normal bowel sounds. Musculoskeletal: Normal ROM, no deformity. Neurological: Alert and oriented, No focal neurological deficit observed. Psychiatric: Cooperative, appropriate mood & affect. Course 2 Vital Signs: Vital signs: Vital Signs Temperature 97.8 F 11/10/23 11:20 Pulse Rate 65 11/10/23 11:55 Respiratory Rate 16 11/10/23 11:20 Blood Pressure 118/81 11/10/23 13:25 Pulse Oximetry 99 11/10/23 11:55 MDM - Abdominal Pain Medical Decision Making Differential diagnosis for patient presenting with right upper quadrant abdominal pain including but not limited to and based on the above HPI, review of systems and physical exam: Cholelithiasis or cholecystitis. Hepatitis. Diverticulitis. Constipation. Ureterolithiasis. Urinary tract infection. Appendicitis. colitis. small bowel obstruction. crohn's flare. pancreatitis. gastritis. peptic ulcer. Aortic disection. Workup including imaging and lab work replaced based on the above differential, history and exam to evaluate differential diagnosis Lab Review: Laboratory results were reviewed and interpreted by myself the emergency room physician. Lab work is unremarkable. No leukocytosis. No anemia. No renal failure. Her liver enzymes are normal. Ultrasound of the gallbladder: Patient does have some gallstones, but no evidence of obstruction. No evidence of cholecystitis. No gallbladder wall thickening or pericholecystic fluid. This was reviewed and interpreted by myself the emergency room physician. I also reviewed the radiology report. Reexamination: Patient remained stable. No increased work of breathing. Pain is fairly tolerable. No altered mental status. Lab Data 11/10/23 12:03 11/10/23 12:03 Labs/Radiology: Laboratory Results WBC 5.84 10^3/uL (3.29-11.43) 11/10/23 12:03 RBC 4.56 10^6/uL (3.85-5.65) 11/10/23 12:03 Hgb 14.00 g/dL (11.27-16.99) 11/10/23 12:03 Hct 42.7 % (36-47) 11/10/23 12:03 MCV 93.6 fl (85-98) 11/10/23 12:03 MCH 30.7 pg (27-33) 11/10/23 12:03 MCHC 32.8 g/dL (30-55) 11/10/23 12:03 RDW 13.2 % (12.1-15.1) 11/10/23 12:03 Plt Count 341 10^3/cmm (157-399) 11/10/23 12:03 MPV 8.9 fL (7.4-10.4) 11/10/23 12:03 Neut % (Auto) 54.8 % 11/10/23 12:03 Lymph % (Auto) 33.9 % 11/10/23 12:03 [place] % (Auto) 9.2 % 11/10/23 12:03 Eos % (Auto) 1.0 % 11/10/23 12:03 Baso % (Auto) 0.9 % 11/10/23 12:03 Neut # (Auto) 3.20 10^3/uL (1.8-7.7) 11/10/23 12:03 Lymph # (Auto) 2.0 10^3/uL (0.8-4.8) 11/10/23 12:03 [place] # (Auto) 0.5 10^3/uL (0.2-0.9) 11/10/23 12:03 Eos # (Auto) 0.1 10^3/uL (0.0-0.8) 11/10/23 12:03 Baso # (Auto) 0.1 10^3/uL (0.0-0.1) 11/10/23 12:03 Nucleated RBC % (auto) 0 % 11/10/23 12:03 Nucleated RBCs # 0.0 /100WBC 11/10/23 12:03 Sodium 136 mmol/L (136-145) 11/10/23 12:03 Potassium 4.0 mmol/L (3.5-5.1) 11/10/23 12:03 Chloride 102 mmol/L (98-107) 11/10/23 12:03 Carbon Dioxide 25 mmol/L (22-29) 11/10/23 12:03 Anion Gap 13.0 (5-19) 11/10/23 12:03 BUN 9 mg/dL (6-20) 11/10/23 12:03 Creatinine 0.7 mg/dL (0.5-0.9) 11/10/23 12:03 GFR Calculation 90.5 mL/min (90-130) 11/10/23 12:03 Glucose 83 mg/dL (65-115) 11/10/23 12:03 Calculated Osmolality 280 mOsm/kg (285-295) L 11/10/23 12:03 Calcium 9.2 mg/dL (8.5-10.5) 11/10/23 12:03 Total Bilirubin 0.3 mg/dL (0.15-1.2) 11/10/23 12:03 AST 14 U/L (0-32) 11/10/23 12:03 ALT 14 U/L (0-33) 11/10/23 12:03 Alkaline Phosphatase 58 U/L (35-105) 11/10/23 12:03 Total Protein 7.1 g/dL (6.6-8.7) 11/10/23 12:03 Albumin 3.9 g/dL (3.5-5.2) 11/10/23 12:03 Globulin 3.2 g/dL (1.3-4.6) 11/10/23 12:03 Lipase 36 U/L (13-60) 11/10/23 12:03 HCG, Qual Negative (Negative) 11/10/23 12:03 Urine Color Light yellow (Yellow) 11/10/23 12:00 Urine Appearance Clear (CLEAR) 11/10/23 12:00 Urine pH 7 (5-7) 11/10/23 12:00 Ur Specific [place] 1.010 (1.005-1.030) 11/10/23 12:00 Urine Protein Neg (Negative) 11/10/23 12:00 Urine Glucose (UA) Norm (Normal) 11/10/23 12:00 Urine Ketones Negative (Negative) 11/10/23 12:00 Urine Blood Neg (Negative) 11/10/23 12:00 Urine Nitrate Negative (Negative) 11/10/23 12:00 Urine Bilirubin Neg (Negative) 11/10/23 12:00 Urine Urobilinogen Norm mg/dL (Negative) 11/10/23 12:00 Ur Leukocyte Esterase Negative (Negative) 11/10/23 12:00 All radiology interpretation(s) finalized by discharge Other Data Assessment and plan: Biliary colic Cholelithiasis - Discharged home - Discussed findings and plan with patient. Answered any questions. - All laboratory values were reviewed and interpreted personally by myself, the ER physician - All imaging was reviewed and interpreted personally by myself, the ER physician. - Evaluation and treatment of this problem were appropriate in the emergency setting Discharge Plan Discharge Patient Disposition: Home Clinical Impression: Biliary colic, Cholelithiasis Condition: Stable Prescriptions: New hydrocodone-acetaminophen 5-325 mg tablet 1 tab PO Q6H PRN (Reason: pain) Qty: 20 0RF ondansetron 8 mg tablet,disintegrating 8 mg PO .q6 PRN (Reason: nausea and vomiting) Qty: 14 0RF Miralax 17 gram/dose powder 17 g PO DAILY Qty: 510 0RF Rx Instructions: Take 1 scoop daily while taking pain medications. No Action (DME) compr.stocking,thigh,reg,large Misc See Rx Instructions .Route Qty: 2 0RF Rx Instructions: As directed albuterol sulfate 2.5 mg /3 mL (0.083 %) solution for nebulization 2.5 mg INHALATION TID PRN (Reason: Shortness Of Breath) bupropion HCl [Wellbutrin SR] 150 mg tablet sustained-release 12 hr 150 mg PO BID Qty: 60 6RF Rx Instructions: Take one tablet twice per day: 6 am and 6 pm albuterol sulfate 90 mcg/actuation HFA aerosol inhaler 1 puff inhalation Q6H PRN (Reason: shortness of breath or wheezing) Qty: 8.5 5RF atorvastatin 20 mg tablet See Rx Instructions .ROUTE .COMPLEX Qty: 90 1RF Dose Instruction: TAKE 1 TABLET (20 MG) BY MOUTH DAILY @2100 Rx Instructions: TAKE 1 TABLET (20 MG) BY MOUTH DAILY @2100 diclofenac sodium 1 % gel 4 g topical QID Qty: 100 0RF Rx Instructions: Apply to knee as directed. celecoxib 200 mg capsule 200 mg PO DAILY docusate sodium 100 mg capsule 100 mg PO BID lorazepam 0.5 mg tablet See Rx Instructions .ROUTE .COMPLEX Rx Instructions: Take 1/2 tab every morning, one tablet at 6 pm and 9 pm levothyroxine 50 mcg tablet 50 mcg PO QAM pantoprazole 40 mg tablet,delayed release (DR/EC) 40 mg PO DAILY montelukast 10 mg tablet 10 mg PO DAILY fluticasone propionate 50 mcg/actuation spray,suspension 2 spray intranasal DAILY omega-3 acid ethyl esters 1 gram capsule 2 cap PO BID melatonin 5 mg capsule 5 mg PO BEDTIME Advair Diskus 100-50 mcg/dose blister with device 1 ea INHALATION BID Discharge Orders: Discharge ED (Routine); Ordered 11/10/23 Ordered By: Stephanie Starr Referrals: Javier Guerra DO [Physician] - 7-10 days (Please call for an appointment.) PORSCHE Davidson, ASSISTANT FACILITY MANAGER [Primary Care Provider] - (You have been screened and evaluated and felt safe for discharge. Health conditions do change or evolve sometimes and as such it is important that you follow up with your Primary Doctor to be re checked, 3-5 days is a general good time frame for follow up. You are always welcome to return to the ED for re assessment if your symptoms are worsening or you have new concerns) Discharge Diet: Low Fat Discharge Activity: Resume usual activity Patient Instructions: Cholelithiasis, Biliary Colic (ED), Abdominal Pain (ED), Opioid Safety, Pain Management Coding Level of Care Code ED [employer]ing Teacher for Christin Akhtar
--- NOTE | 2023-11-10 11:38 | US_ITS ---
WS: [id number] RIGHT UPPER QUADRANT ULTRASOUND HISTORY: Right upper quadrant pain, concern for cholecystitis COMPARISON: None available. Liver: 12.8 cm in length. Normal size liver and echogenicity. No bile duct dilatation or mass. Portal Vein: Normal hepatopetal flow with monophasic waveform. Gallbladder: Normally distended gallbladder. There is mild gallbladder wall thickening but no pericho lecystic fluid. Numerous stones are present in the gallbladder with shadowing. CBD: 0.4 cm Pancreas: Head and tail are obscured. The body is normal. Right kidney: 9.9 cm in length. Normal size and echogenicity. No hydronephrosis or mass. Aorta and IVC: Unremarkable abdominal aorta and IVC. No ascites. IMPRESSION: 1. Cholelithiasis without acute cholecystitis. The gallbladder wall is top normal size but no pericho lecystic fluid. 2. No bile duct dilatation.
[2023-11-10 11:55] VITALS: BP 124/82; PULSE 65; O2SAT 99
[2023-11-10 12:16] LABS: Basophils # 0.1 10^3/uL (0.0-0.1); Basophils % 0.9 %; Eosinophils # 0.1 10^3/uL (0.0-0.8); Hematocrit 42.7 % (36-47); Lymphocytes % 33.9 %; Mean Corpuscular HGB Conc 32.8 g/dL (30-55); Mean Corpuscular Hemoglobin 30.7 pg (27-33); Mean Corpuscular Volume 93.6 fl (85-98); Mean Platelet Volume 8.9 fL (7.4-10.4); Monocytes # 0.5 10^3/uL (0.2-0.9); Monocytes % 9.2 %; Neutrophils % 54.8 %; Nucleated Red Blood Cells % 0 %; Platelet Count 341 10^3/cmm (157-399); Red Blood Count 4.56 10^6/uL (3.85-5.65); Red Cell Distribution Width 13.2 % (12.1-15.1); White Blood Count 5.84 10^3/uL (3.29-11.43)
[2023-11-10 12:17] LABS: Add Urine Microscopic? NO; Charge for UA Resulting for Rev
[2023-11-10 12:25] LABS: Bilirubin Urine Neg (Negative); Blood Urine Neg (Negative); Glucose Urine UA Norm (Normal); Ketones Urine Negative (Negative); Leukocyte Esterase Urine Negative (Negative); Nitrate Urine Negative (Negative); Protein Urine Neg (Negative); Urine Appearance Clear (CLEAR); Urine Color Light yellow (Yellow); Urobilinogen Urine Norm (Negative); pH Urine 7 (5-7)
[2023-11-10 12:36] LABS: Alanine Aminotransferase 14 U/L (0-33); Albumin Level 3.9 g/dL (3.5-5.2); Alkaline Phosphatase 58 U/L (35-105); Aspartate Amino Transferase 14 U/L (0-32); Blood Urea Nitrogen 9 mg/dL (6-20); Calcium 9.2 mg/dL (8.5-10.5); Carbon Dioxide 25 mmol/L (22-29); Chloride 102 mmol/L (98-107); Creatinine Clr Calc Pharmacy 101.4733; Globulin 3.2 g/dL (1.3-4.6); Glomerular Filtration Rate 90.5 mL/min (90-130); Glucose 83 mg/dL (65-115); Lipase 36 U/L (13-60); Osmolality Calculated 280 mOsm/kg (285-295); Sodium 136 mmol/L (136-145); Total Bilirubin 0.3 mg/dL (0.15-1.2); Total Protein 7.1 g/dL (6.6-8.7)
[2023-11-10 12:45] LABS: HCG, Serum Qual Negative (Negative)
[2023-11-10 13:25] VITALS: BP 118/81
[2023-11-10 14:22] VITALS: BP 95/74; PULSE 79; O2SAT 98
== END 2023-11-10 14:24 | disposition home or self-care (01) ==
PROVIDERS: Emergency Medicine; Emergency Provider Emergency Medicine; PCP Nurse Practitioner Family
DX: K80.20 Calculus of gallbladder without cholecystitis without obstruction (principal); E78.2 Mixed hyperlipidemia
CPT/HCPCS: 36415; 76705; 80053; 81003; 83690; 84703; 85025; 99284

== ENCOUNTER → 2023-11-18 10:18 | Outpatient (BNVA) | payer MEDICARE, MEDICAID, SELFPAY | PROVIDERS: PCP Nurse Practitioner; Visit Provider Nurse Practitioner Family | DX: E03.9 Hypothyroidism, unspecified (principal); Z79.899 Other long term (current) drug therapy; Z13.6 Encounter for screening for cardiovascular disorders; F33.42 Major depressive disorder, recurrent, in full remission; E55.9 Vitamin D deficiency, unspecified | CPT/HCPCS: 80053; 80061; 81003; 82306; 83036; 84443; 85025 ==

== ENCOUNTER → 2023-12-05 08:48 | Outpatient (BNVA) | payer MEDICARE, MEDICAID, SELFPAY | PROVIDERS: PCP Nurse Practitioner; Referring Provider Nurse Practitioner Family; Visit Provider Surgery | DX: K80.20 Calculus of gallbladder without cholecystitis without obstruction (principal) | CPT/HCPCS: 99204 ==

== ENCOUNTER 2023-12-13 08:09 | Day surgery (SDC) | payer MEDICARE, MEDICAID, SELFPAY ==
[2023-12-13] VITALS (11 sets, daily range): BP systolic 126–138; BP diastolic 73–95; PULSE 62–92; RESP 12–21; TEMP 36.2–37.2; O2SAT 92–100; BMI 35.6
--- NOTE | 2023-12-13 08:17 | W.PM.OPSUD ---
Surgery/Procedure H&P Update DATE OF PROCEDURE: December 13, 2023 DATE H&P PERFORMED: 12/05/23 H&P UPDATE INFORMATION: I have reviewed H&P completed within last 30 days, I have examined patient prior to procedure and No changes to prior documentation PLANNED PROCEDURE: Operation Date: 12/13/23 09:55 Proposed Procedures p Laparoscopic Cholecystectomy(Not Applicable) - Javier Guerra DO
[2023-12-13 08:24] LABS: OR HCG Qualitative Urine Negative (Negative)
--- NOTE | 2023-12-13 08:37 | ANES.PREANE2 ---
Pre-Anesthetic Assessment Height/Weight: Height 1.55 m Weight 85.729 kg Temp Pulse Resp BP Pulse Ox O2 Del Method 97.5 F L 62 17 131/73 99 Room Air 12/13/23 08:20 12/13/23 08:20 12/13/23 08:20 12/13/23 08:20 12/13/23 08:20 12/13/23 08:35 Operation Date: 12/13/23 09:55 Proposed Procedures p Laparoscopic Cholecystectomy(Not Applicable) - Javier Guerra DO Last intake: Intake Last Liquid Date 12/12/23 Last Liquid Time 18:00 Last Solid Date 12/12/23 Last Solid Time 18:00 Social No alcohol and No tobacco Exam alert, oriented x 3, clear to auscultation bilaterally and regular rate & rhythm Airway Submandibular: Other (receeding mandible ) Cervical ROM: within normal limits Mallampati: Class II Pulmonary Asthma GI Gastroesophageal Reflux Disease Metabolic Hyperlipidemia and Thyroid Disease (hypothyroid) Neuropsych Anxiety and Bipolar Anesthetic Plan ASA status: 3 Anesthesia: General Medications/Allergies Home Medications Medication Instructions Recorded Confirmed Last Taken Type compr.stocking,thigh,reg,large #2 ea 05/06/21 12/09/23 Unknown Rx albuterol sulfate 2.5 mg/3 mL 2.5 mg inhalation TID PRN 03/11/22 12/12/23 Unknown History (0.083 %) solution for nebulization Shortness Of Breath albuterol sulfate 90 mcg/actuation 1 puff inhalation Q6H PRN 05/09/23 12/12/23 Unknown Rx aerosol inhaler shortness of breath or wheezing #8.5 grams diclofenac sodium 1 % topical gel 4 g topical QID #100 grams 06/06/23 12/12/23 Unknown Rx celecoxib 200 mg capsule 200 mg PO DAILY 11/10/23 12/12/23 12/12/23 History docusate sodium 100 mg capsule 100 mg PO BID 11/10/23 12/12/23 12/12/23 History fluticasone 100 mcg-salmeterol 50 1 ea inhalation BID 11/10/23 12/09/23 11/10/23 History mcg/dose blistr powdr for inhalation (Advair Diskus) fluticasone propionate 50 2 spray intranasal DAILY 11/10/23 12/12/23 12/12/23 History mcg/actuation nasal spray,suspension hydrocodone 5 mg-acetaminophen 325 1 tab PO Q6H PRN pain #20 tabs 11/10/23 12/12/23 Unknown Rx mg tablet levothyroxine 50 mcg tablet 50 mcg PO QAM 11/10/23 12/12/23 12/12/23 History melatonin 5 mg capsule 5 mg PO BEDTIME 11/10/23 12/12/23 12/12/23 History montelukast 10 mg tablet 10 mg PO DAILY 11/10/23 12/12/23 12/12/23 History omega-3 acid ethyl esters 1 gram 2 cap PO BID 11/10/23 12/12/23 12/12/23 History capsule ondansetron 8 mg disintegrating 8 mg PO .q6 PRN nausea and 11/10/23 12/12/23 Unknown Rx tablet vomiting #14 tabs pantoprazole 40 mg tablet,delayed 40 mg PO DAILY 11/10/23 12/12/23 12/12/23 History release polyethylene glycol 3350 17 17 g PO DAILY #510 grams 11/10/23 12/12/23 Unknown Rx gram/dose oral powder (Miralax) bupropion HCl 150 mg tablet,12 hr 150 mg PO BID #60 tabs 12/09/23 12/12/23 12/12/23 Rx sustained-release (Wellbutrin SR) atorvastatin 20 mg tablet 20 mg PO DAILY 12/12/23 12/12/23 12/12/23 History cholecalciferol (vitamin D3) 1,250 1,250 mcg PO DAILY 12/12/23 12/12/23 12/12/23 History mcg (50,000 unit) capsule fluticasone furoate 200 1 inh inhalation DAILY 12/12/23 12/13/23 12/13/23 06:00 History mcg-vilanterol 25 mcg/dose inhalation powder (Breo Ellipta) lorazepam 0.5 mg tablet 0.25 mg PO DIRECTED 12/13/23 12/13/23 12/13/23 06:00 History Allergies Allergy/AdvReac Type Severity Reaction Status Date / Time No Known Allergies Allergy Verified 12/09/23 12:37 [facility] Anesthesia Medical History Otitis media Upper respiratory infection Hypocalcemia Psychiatric care Bacterial sinusitis UTI symptoms DVT (deep venous thrombosis) Bilateral lower extremity edema Bilateral otitis media Medication management Cellulitis of left leg Insomnia Vitamin D deficiency Osteoarthritis of right knee Hypothyroid Mixed hyperlipidemia H/O methicillin resistant Staphylococcus aureus Asthma Nicotine dependence, cigarettes, uncomplicated Not smoking on 12/28/2020 Idiopathic mild intellectual disability Major depressive disorder, recurrent, in full remission with anxious distress Surgical History History of incision and drainage (~2010) with debridement for abscess in upper back, mrsa Social History Smoking and tobacco/nicotine status: never used tobacco/nicotine Alcohol intake: former Former alcohol use details: quit when moved to [place], never heavy drinker Substance/Drug Use: never Housing: Other Details: [place] Data Anesthesia Cardiac Studies: No Data to Display
[2023-12-13] MEDS: sodium chloride 0.9% 1,000 ML 30 ML IV (08:43)
[2023-12-13] MEDS: ceFAZolin 2,000 MG in sodium chloride 0.9% (plus) 50 ML 100 MG IV (09:13)
[2023-12-13] MEDS: lidocaine-epi 2% PF 1:200,000 20 mL SDV XX (09:29)
--- NOTE | 2023-12-13 09:57 | P.OP_ITS ---
Operative Report Date of procedure: December 13, 2023 Surgeon: Javier Guerra DO Brief History: This very pleasant 43-year-old female who was diagnosed with symptomatic cholelithiasis. Laparoscopic cholecystectomy was indicated. The risk and benefits were explained and documented. Procedure: Preoperative diagnosis: Symptomatic cholelithiasis Postoperative diagnosis: Same Procedure performed: Laparoscopic cholecystectomy Surgeon: Dr. Javier Guerra DO Estimated blood loss: 5 mL Specimens: Gallbladder to pathology Complications: None apparent Description of procedure: Patient was wheeled into the operative room and placed on the OR table in a supine position. Abdomen was inspected prepped and draped in usual sterile fashion. Time-out was performed and all present were in agreement. A 15 blade scalp was used to make a stab incision in the left upper quadrant and intra- abdominal insufflation was achieved using a Veress needle. After localizing the tissue incisions were made and a 5 millimeter trocar was placed into the umbilicus as well as 2 in the right upper quadrant. A 12 millimeter trocar was placed in the epigastrium. Gallbladder was grasped and elevated. The triangle of Calot was carefully dissected using blunt dissection and electrocautery until the triangle of [place] clearly identified. The cystic duct was clipped proximally and double clipped distally. The duct was then ligated proximally. The cystic artery was doubly clipped and ligated. The gallbladder was then removed from the liver bed using electrocautery. The gallbladder was removed from the abdomen using an Endo-Catch bag through the epigastric incision. The liver bed was inspected and no bleeding was seen. The abdomen was irrigated and suctioned. All ports removed. Skin was washed and dried. Incisions were closed with 4-0 Monocryl in a subcuticular interrupted fashion. Skin glue was applied. Patient tolerated the procedure well.
[2023-12-13] MEDS: fentaNYL 50 mcg/mL INJ 2mL IVP (10:27)
[2023-12-13] MEDS: HYDROcodone-acetaminophen 7.5-325 mg Tablet 1 TAB PO (11:08)
--- NOTE | 2023-12-13 12:58 | ANE.PACU2 ---
Inpatient post-anesthesia follow up: Vital signs: Temperature 97.2 F Pulse Rate 66 Respiratory Rate 17 Blood Pressure 127/86 Pulse Oximetry 97 Oxygen Delivery Me thod Room Air Oxygen Flow Rate 8 Fraction of Inspir ed Oxygen Hydration adequate: Yes Nausea and vomiting: No Pain level: 3 Mental status: Baseline
== END 2023-12-13 11:30 | disposition home or self-care (01) ==
PROVIDERS: PCP Nurse Practitioner Family; Visit Provider Surgery
PROC: 0FT44ZZ Resection of Gallbladder, Percutaneous Endoscopic Approach (ICD-10-PCS; CPT 47562; principal; 2023-12-13 09:45)
DX: K80.10 Calculus of gallbladder with chronic cholecystitis without obstruction (principal); J45.909 Unspecified asthma, uncomplicated; K21.9 Gastro-esophageal reflux disease without esophagitis; E03.9 Hypothyroidism, unspecified; Z86.718 Personal history of other venous thrombosis and embolism; E78.2 Mixed hyperlipidemia; F17.210 Nicotine dependence, cigarettes, uncomplicated
CPT/HCPCS: 47562; 81025; 88304; J0330; J0461; J0690; J1100; J2250; J2405; J2704; J2710; J3010; J3490; J7030

== ENCOUNTER 2023-12-30 08:43 | Outpatient (CLI) | payer MEDICARE, MEDICAID, SELFPAY ==
--- NOTE | 2023-12-30 08:51 | MM_ITS ---
WS: [id number] BILATERAL SCREENING DIGITAL TOMOSYNTHESIS MAMMOGRAM WITH CAD HISTORY: SCREENING COMPARISON: 12/24/2022, 12/04/2021, 09/13/2019 Bilateral CC and MLO views with tomosynthesis and synthetic mammography submitted. Computer aided det ection analyzed. Breast composition: There are scattered areas of fibroglandular density. No suspicious masses, microc alcifications or architectural distortion. Asymmetric soft tissue lateral RIGHT breast near 9:00 is u nchanged. No suspicious mass or calcification. No interval currency exchange specialist multiple years. MM/[place] [id number] IMPRESSION: BI-RADS: 2-Benign FOLLOW UP: 1 Year Follow-up
== END 2023-12-30 08:44 | disposition home or self-care (01) ==
LOC: RAD 08:43
PROVIDERS: PCP Nurse Practitioner Family; Visit Provider Nurse Practitioner Family
DX: Z12.31 Encounter for screening mammogram for malignant neoplasm of breast (principal); Z90.49 Acquired absence of other specified parts of digestive tract
CPT/HCPCS: 77063; 77067; 99024

== ENCOUNTER → 2024-01-20 10:18 | Outpatient (BNVA) | payer MEDICARE, OTHER, SELFPAY | PROVIDERS: PCP Nurse Practitioner Family; Visit Provider Nurse Practitioner Family | DX: R31.9 Hematuria, unspecified (principal) | CPT/HCPCS: 81000 ==

== ENCOUNTER → 2024-05-25 10:40 | Outpatient (BNVA) | payer MEDICARE, MEDICAID, SELFPAY | PROVIDERS: PCP Nurse Practitioner Family; Visit Provider Nurse Practitioner Family | DX: Z03.89 Encounter for observation for other suspected diseases and conditions ruled out (principal) | CPT/HCPCS: 81003 ==

== ENCOUNTER → 2024-06-22 11:34 | Outpatient (BNVA) | payer MEDICARE, MEDICAID, SELFPAY | PROVIDERS: PCP Nurse Practitioner Family; Visit Provider Nurse Practitioner Family | DX: Z12.4 Encounter for screening for malignant neoplasm of cervix (principal); N89.8 Other specified noninflammatory disorders of vagina | CPT/HCPCS: 87070; 87205; 87624 ==

== ENCOUNTER → 2024-07-27 09:54 | Outpatient (BNVA) | payer MEDICARE, MEDICAID, SELFPAY | PROVIDERS: PCP Nurse Practitioner Family; Visit Provider Nurse Practitioner Family | DX: E78.2 Mixed hyperlipidemia (principal); E03.9 Hypothyroidism, unspecified; E55.9 Vitamin D deficiency, unspecified; E83.51 Hypocalcemia; F33.42 Major depressive disorder, recurrent, in full remission; Z79.899 Other long term (current) drug therapy; J45.20 Mild intermittent asthma, uncomplicated; R31.9 Hematuria, unspecified | CPT/HCPCS: 80053; 80061; 81003; 82306; 83036; 84443; 85025 ==

== ENCOUNTER 2025-01-16 11:21 | Outpatient (CLI) | payer MEDICARE, MEDICAID, SELFPAY ==
--- NOTE | 2025-01-16 11:40 | MM_ITS ---
WS: [id number] BILATERAL SCREENING DIGITAL TOMOSYNTHESIS MAMMOGRAM WITH CAD HISTORY: SCREENING COMPARISON: 12/30/2023, 12/24/2022, 12/04/2021 Bilateral CC and MLO views with tomosynthesis and synthetic mammography submitted. Computer aided detection analyzed. Breast composition: There are scattered areas of fibroglandular density. No suspicious masses, microcalcifications or architectural distortion. Stable asymmetry upper outer quadrant RIGHT breast. Benign lymph nodes. MM/MM scr BI tomosynthesis [id number] IMPRESSION: BI-RADS: 2 - Benign. FOLLOW UP: 1 Year Follow-up
== END 2025-01-16 11:22 | disposition home or self-care (01) ==
LOC: MOBLMAM 11:23
PROVIDERS: PCP Nurse Practitioner Family; Visit Provider Nurse Practitioner Family
DX: Z12.31 Encounter for screening mammogram for malignant neoplasm of breast (principal); R92.323 Mammographic fibroglandular density, bilateral breasts; N64.89 Other specified disorders of breast; R59.0 Localized enlarged lymph nodes
CPT/HCPCS: 77063; 77067

== ENCOUNTER → 2025-05-10 09:40 | Outpatient (BNVA) | payer MEDICARE, MEDICAID, SELFPAY | PROVIDERS: PCP Nurse Practitioner Family; Visit Provider Nurse Practitioner Family | DX: Z79.899 Other long term (current) drug therapy (principal); E03.9 Hypothyroidism, unspecified; E55.9 Vitamin D deficiency, unspecified; F33.42 Major depressive disorder, recurrent, in full remission | CPT/HCPCS: 80053; 80061; 81003; 82306; 83036; 84439; 84443; 85025 ==